=== PATIENT | female | born 1945 | race Caucasian/White ===

== ENCOUNTER 2017-05-24 23:06 | Emergency (ER) | payer OTHER ==
[~2017-05-24] VITALS: Ht 165.1 cm; Wt 80.8 kg
[2017-05-24 23:10] VITALS: TEMP 36.6; Ht 165.1 cm; Wt 80.8 kg
[2017-05-24] MEDS ORDERED: SODIUM CHLORIDE 0.9% 1000ML 1,000 ML IV SCH (23:23)
[2017-05-24 23:30] LABS: BASO % 0.4 %; BASO ABS # 0.04 K/uL (0-0.2); COMPLETE YES; HEMATOCRIT 38.8 % (37-47); IG% 0.4 %; LYMPH % 26.8 %; LYMPH ABS # 2.47 K/uL (1.2-3.4); MEAN CELL VOLUME 92.4 fL (80-100); MEAN CORPUSCULAR HEMOGLOBIN 30.7 pg (25-34); MEAN CORPUSCULAR HGB CONC 33.2 g/dl (32-36); MEAN PLATELET VOLUME 11.1 fL (7.4-10.4); MONO % 11.1 %; NEUT % 58.3 %; PLATELET COUNT 278 K/uL (130-400); WHITE BLOOD COUNT 9.23 K/uL (4.8-10.8)
[2017-05-24 23:37] LABS: URINE APPEARANCE CLEAR (CLEAR); URINE BILIRUBIN NEG (NEG); URINE COLOR YELLOW; URINE NITRITE NEG (NEG); URINE SPECIFIC GRAVITY 1.009 (1.000-1.030); UROBILINOGEN NEG (NEG); ZZUR CULT IF INDIC CLEAN CATCH NO
[2017-05-24 23:40] LABS: INR 0.9 (0.9-1.1)
[2017-05-24 23:42] LABS: MANUAL MICROSCOPIC REQUIRED? NO; REVIEW REQ? NO
[2017-05-24 23:47] LABS: BLOOD UREA NITROGEN 21 mg/dl (7-18); BUN/CREATININE RATIO 18.9 (10-20); CALCIUM 9.1 mg/dl (8.5-10.1); CARBON DIOXIDE 26 mmol/L (21-32); CHLORIDE 108 mmol/L (98-107); GLUCOSE 110 mg/dl (70-99); POTASSIUM 4.1 mmol/L (3.5-5.1); SODIUM 140 mmol/L (136-145)
[2017-05-24 23:50] VITALS: O2SAT 96
[2017-05-24 23:51] LABS: CKMB/CK RATIO 1.6 (0-3.0)
--- NOTE | 2017-05-24 23:53 | EMERGENCY ROOM VISIT NOTE ---
History Report prepared by Umair: Vanessa Bobby Under the Supervision of: Dr. Anmol Ham D.O. First contact with patient: 23:15 Chief Complaint: NEURO SYMPTOMS Stated Complaint: NUMBNESS IN LEFT HAND AND LEFT ARM Nursing Triage Summary: Pt reports onset of numbness and pain to left middle finger around 1730 today. Pt reports pain and numbness now worsening and spreading further up the arm. Hx of mini stroke 8 years ago, right sided. reports she occasionally has numbness to right side of face from that History of Present Illness The patient is a 72 year old female who presents to the Emergency Room with complaints of worsening left arm numbness starting 1700 today. She started with pain in her left middle finger. Since then the pain and numbness has spread up into her arm. She states that her whole hand and arm is painful and not just her elbow or wrist. The numbness is waxing and waning. She has never experienced this before. She reports foot swelling and neck pain. She denies any headache, weakness in her arms or legs, swelling in her hand or arm, chest pain, nausea, or vomiting. She denies any recent sickness or falls. She has leg pain which she attributes to her spinal stenosis. She had a TIA 8 years ago which resulted from a blocked blood vessel. She still has some numbness on the right side of her face. She has a history of hypertension and arthritis. She is on Plavix. She just started meloxicam. She denies any history of surgery besides C section. Source of History: patient, family Onset: 1700 today Position: arm (left) Quality: numbness Timing: waxes/wanes, worsening Associated Symptoms: + neck pain, No headache, No chest pain, No nausea, No vomiting, No weakness Note: Pt reports foot swelling. Pt denies arm swelling. Review of Systems See HPI for pertinent positives & negatives. A total of 10 systems reviewed and were otherwise negative. Past Medical & Surgical Medical Problems: (1) Arthritis (2) Hypertension (3) TIA (transient ischemic attack) Family History Heart disease Hypertension Social History Smoking Status: Never Smoker Marital Status: Occupation Status: employed Current/Historical Medications Scheduled Alendronate/Cholecalciferol (Fosamax+D 70MG/2800 Iu), 1 TABLET PO WK Aspirin (Aspirin Chewable), 81 MG PO DAILY Atorvastatin (Lipitor), 10 MG PO DAILY Benazepril (Lotensin), 10 MG PO DAILY Citalopram Hydrobromide (Celexa), 20 MG PO DAILY Clopidogrel Bisulfate (Plavix), 75 MG PO DAILY Fluticasone Propionate (Nasal) (Flonase Allergy Relief), 2 SPRAYS ANGIE DAILY Meloxicam (Mobic), 15 MG PO DAILY Multivitamin (Multivitamin), 1 TAB PO DAILY Omeprazole (Prilosec), 20 MG PO BID Scheduled PRN Lorazepam (Ativan), 0.5 MG PO TID PRN for Anxiety Allergies Coded Allergies: No Known Allergies (Unverified , 05/25/17) Physical Exam Vital Signs Date Time Temp Pulse Resp B/P (MAP) Pulse Ox O2 Delivery O2 Flow Rate FiO2 05/25/17 01:04 67 125/89 95 Room Air 05/24/17 23:50 96 Room Air 05/24/17 23:48 72 05/24/17 23:10 36.6 84 18 156/76 94 Room Air Physical Exam GENERAL: Patient is awake, alert, and in no acute distress. Patient is resting comfortably and showing no signs of anxiety EYES: The conjunctivae are clear. The pupils are round and reactive. EARS, NOSE, MOUTH AND THROAT: The nose is without any evidence of any deformity. Mucous membranes are moist tongue is midline NECK: The neck is nontender and supple. No bruits noted to auscultation. RESPIRATORY: Normal respiratory effort is noted there is no evidence of wheezing rhonchi or rales CARDIOVASCULAR: Regular rate and rhythm noted there no murmurs rubs or gallops normal S1 normal S2 GASTROINTESTINAL: The abdomen is soft. Bowel sounds are present in all quadrants. Abdomen is nontender MUSCULOSKELETAL/EXTREMITIES: There is no evidence of gross deformity full range of motion is noted in the hips and shoulders SKIN: There is no obvious evidence of any rash. There are no petechiae, pallor or cyanosis noted. 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 Medical Decision & Procedures ER Provider Diagnostic Interpretation: X-ray results as stated below per interpretation by me. Chest X-ray: Elevated right hemidiaphragm, no free air, no definite infiltrate, no acute disease CT the head was obtained in the emergency department. The report was reviewed. Preliminary Findings Only See Final Report For Complete Findings CT HEAD: No acute intracranial abnormality identified. Chronic small vessel ischemic disease and mild cerebral volume loss. Small remote lacunar infarcts versus prominent perivascular spaces in the basal ganglia. Mild senescent calcifications in the basal ganglia. Radiologist: Ana Garcia M.D. Study ready at 23:47 and initial results transmitted at 00:16 CT the cervical spine was obtained. The report is reviewed. Preliminary Findings Only See Final Report For Complete Findings CT C SPINE: No acute traumatic abnormality identified. Straightening of the normal cervical lordosis may be in part secondary to patient positioning/neck brace. Multilevel degenerative changes of the cervical spine, most prominent from C5- C7. Degenerative changes of the TMJs. Radiologist: Ana Garcia M.D. Study ready at 23:55 and initial results transmitted at 00:22 Laboratory Results 05/24/17 23:20 Red Blood Count 4.20, Mean Corpuscular Volume 92.4, Mean Corpuscular Hemoglobin 30.7, Mean Corpuscular Hemoglobin Concent 33.2, Mean Platelet Volume 11.1, Neutrophils (%) (Auto) 58.3, Lymphocytes (%) (Auto) 26.8, Monocytes (%) (Auto) 11.1, Eosinophils (%) (Auto) 3.0, Basophils (%) (Auto) 0.4, Neutrophils # (Auto ) 5.38, Lymphocytes # (Auto) 2.47, Monocytes # (Auto) 1.02, Eosinophils # (Auto ) 0.28, Basophils # (Auto) 0.04 05/24/17 23:20 Test 05/24/17 00:00 05/24/17 23:20 Urine Color YELLOW Urine Appearance CLEAR (CLEAR) Urine pH 6.0 (4.5-7.5) Urine Specific [place] 1.009 (1.000-1.030) Urine Protein NEG (NEG) Urine Glucose (UA) NEG (NEG) Urine Ketones NEG (NEG) Urine Occult Blood NEG (NEG) Urine Nitrite NEG (NEG) Urine Bilirubin NEG (NEG) Urine Urobilinogen NEG (NEG) Urine Leukocyte Esterase NEG (NEG) White Blood Count 9.23 K/uL (4.8-10.8) Red Blood Count 4.20 M/uL (4.2-5.4) Hemoglobin 12.9 g/dL (12.0-16.0) Hematocrit 38.8 % (37-47) Mean Corpuscular Volume 92.4 fL (80-100) Mean Corpuscular Hemoglobin 30.7 pg (25-34) Mean Corpuscular Hemoglobin Concent 33.2 g/dl (32-36) Platelet Count 278 K/uL (130-400) Mean Platelet Volume 11.1 fL (7.4-10.4) Neutrophils (%) (Auto) 58.3 % Lymphocytes (%) (Auto) 26.8 % Monocytes (%) (Auto) 11.1 % Eosinophils (%) (Auto) 3.0 % Basophils (%) (Auto) 0.4 % Neutrophils # (Auto) 5.38 K/uL (1.4-6.5) Lymphocytes # (Auto) 2.47 K/uL (1.2-3.4) Monocytes # (Auto) 1.02 K/uL (0.11-0.59) Eosinophils # (Auto) 0.28 K/uL (0-0.5) Basophils # (Auto) 0.04 K/uL (0-0.2) RDW Standard Deviation 45.0 fL (36.4-46.3) RDW Coefficient of Variation 13.3 % (11.5-14.5) Immature Granulocyte % (Auto) 0.4 % Immature Granulocyte # (Auto) 0.04 K/uL (0.00-0.02) Prothrombin Time 10.0 SECONDS (9.0-12.0) Prothromb Time International Ratio 0.9 (0.9-1.1) Activated Partial Thromboplast Time 26.6 SECONDS (21.0-31.0) Partial Thromboplastin Ratio 1.0 Anion Gap 6.0 mmol/L (3-11) Est Creatinine Clear Calc Drug Dose 49.3 ml/min Estimated GFR () 58.5 Estimated GFR (Non- 50.5 BUN/Creatinine Ratio 18.9 (10-20) Calcium Level 9.1 mg/dl (8.5-10.1) Total Creatine Kinase 91 U/L (26-192) Creatine Kinase MB 1.5 ng/ml (0.5-3.6) Creatine Kinase MB Ratio 1.6 (0-3.0) Troponin I < 0.015 ng/ml (0-0.045) Laboratory results per my review. Medications Administered Medications (Trade) Dose Ordered Sig/Naomy Route Start Time Stop Time Status Last Admin Dose Admin Sodium Chloride 1,000 ml @ 50 mls/hr Q20H IV 05/24/17 23:23 06/23/17 23:22 05/24/17 23:50 50 MLS/HR ECG Indication: weakness Rate (beats per minute): 71 Rhythm: normal sinus Findings: T-wave inversion (Anterior), no ectopy, other (no acute ST segment abnormality) Comparison ECG Date: 11-Aug-2011 Change: no significant change ED Course 231: The patient was evaluated in room A2. A complete history and physical examination were performed. 2323: NSS 1000 ml @ 50 mls/hr IV. 0028: I reevaluated the patient. She is resting comfortably. 0118: Upon reevaluation, the patient is resting comfortably. I discussed the results and treatment plan with her. She verbalized agreement of the treatment plan. She was discharged home. 0121: Oxycodone HCl 5 mg PO. 0130: Oxycodone HCl 1 homepack PO. Medical Decision Prior records/ancillary studies reviewed and summarized above. Nursing notes reviewed. Additional history obtained from family. The patient's history was concerning for weakness. Differential diagnosis: Etiologies such as metabolic, infection, hypo/hyperglycemia, electrolyte abnormalities, cardiac sources, intracerebral event, toxicologic, neurologic, as well as others were entertained. Medication Reconciliation: I attest that I have personally reviewed the patient' s current medications list. Blood pressure screening: Patient was found to have normal blood pressure on screening and does not require follow-up. The patient is a 72-year-old female who presented to the emergency department for an evaluation of left upper extremity numbness and pain. The patient states that she started noticing earlier this evening that her hand was feeling numb but she also had some discomfort especially with moving the fingers. She had no focal neurologic deficit. She has no facial droop. She has no other complaints at this time. The symptoms have been ongoing since Thursday. I discussed the patient's laboratory and radiographic studies with her. At this time I do not feel this represents a stroke. The patient was in normal sinus rhythm. Her exam as well as her history appear to be more consistent with a peripheral nerve entrapment such as carpal tunnel syndrome. I discussed this with the patient and I encouraged her to rest and avoid any strenuous activity. She was also encouraged to follow-up with her family doctor as soon as possible for further evaluation and for possible further testing such as an EMG. I did advise her to return the emergency department immediately if any symptoms that would correlate with a stroke were to develop such as severe headache unilateral weakness difficulty speaking or any other worrisome symptoms. The patient was treated with pain medication in the emergency department. She was also given IV fluids. Impression Primary Impression: Pain of left upper extremity Additional Impression: Left upper extremity numbness Scribe Attestation The scribe's documentation has been prepared under my direction and personally reviewed by me in its entirety. I confirm that the note above accurately reflects all work, treatment, procedures, and medical decision making performed by me. Departure Information Dispostion Home / Self-Care Referrals Radames Whitehead M.D. (PCP) Forms HOME CARE DOCUMENTATION FORM, IMPORTANT VISIT INFORMATION, WORK / SCHOOL INSTRUCTIONS Patient Instructions Carpal Tunnel Syndrome, Carpal Tunnel Syndrome Prevent, My [facility] Additional Instructions Call your family in the morning to schedule a follow-up appointment. I would recommend further studies such as an EMG or possibly a referral to physiatry asked to further evaluate the cause of the left upper extremity discomfort. Rest and avoid any strenuous activity. Return to the emergency Department immediately if any signs of stroke develop such as difficulty with speech severe headache weakness in the arms or legs or if any other worrisome symptoms develop. Problem Qualifiers
[2017-05-25] MEDS ORDERED: MELO15TA4 PO (00:04)
[2017-05-25] MEDS ORDERED: BENA10TA10 PO (00:06)
[2017-05-25] MEDS ORDERED: LORA-741 PO (00:06)
[2017-05-25] MEDS ORDERED: CITA20TA9 PO (00:06)
[2017-05-25] MEDS ORDERED: FSMD/70 PO (00:06)
[2017-05-25] MEDS ORDERED: CLOP1TAB5 PO (00:06)
[2017-05-25] MEDS ORDERED: PRLSR20 PO (00:06)
[2017-05-25] MEDS ORDERED: ATOR10TA88 PO (00:06)
[2017-05-25] MEDS ORDERED: ASPCH81X PO (00:08)
[2017-05-25] MEDS ORDERED: FLUT0.15 NAE (00:08)
[2017-05-25] MEDS ORDERED: MULT-506 PO (00:08)
[2017-05-25] MEDS ORDERED: OXYCODONE HCL IR 5 MG TAB (IMMEDIATE RELEASE) PO STA (01:21)
[2017-05-25] MEDS ORDERED: OXYCODONE IR HOME PACK PO ONE (01:30)
[2017-05-25 01:36] VITALS: BP 117/65; PULSE 76; O2SAT 94
--- NOTE | 2017-05-25 06:36 | DIAGNOSTIC IMAGING REPORT ---
CHEST ONE VIEW PORTABLE HISTORY:72 yearsFemaleStroke COMPARISON: None available TECHNIQUE: Portable upright AP view of the chest FINDINGS: Cardiomediastinal and hilar silhouettes are within normal limits. There is no pneumothorax, pleural effusion or focal airspace consolidation. There is mild right hemidiaphragmatic elevation. The bones are grossly intact. Linear radiodensities project over the upper right abdomen measuring up to 2.0 cm in length which are nonspecific. IMPRESSION: No acute cardiopulmonary process. The above report was generated using voice recognition software. It may contain grammatical, syntax or spelling errors. Electronically signed by: Aniket Malagon M.D. 05/25/2017 6:35 AM Dictated Date/Time: 05/25/2017 6:34 AM
--- NOTE | 2017-05-25 06:49 | DIAGNOSTIC IMAGING REPORT ---
HEAD WITHOUT CONTRAST (CT) HISTORY: 72-year-old female presents with acute strokelike symptoms and left upper extremity weakness. TECHNIQUE: Multiple axial CT images of the head were obtained without contrast. COMPARISON: Brain MRI 10/12/2007. FINDINGS: No acute intracranial hemorrhage, midline shift, mass, large territorial ischemia or abnormal extra-axial collection. There is mild cerebral volume loss. Patchy areas of low-attenuation are seen within the subcortical and periventricular white matter structures bilaterally which appears slightly progressed from comparison study dated 10/12/2007. Again noted is a focal area of low attenuation within the inferior left lentiform nucleus suggesting prominent perivascular space or remote lacunar infarction. The calvarium is intact. The paranasal sinuses, mastoid air cells, and middle ear cavities are clear. IMPRESSION: 1. No acute intracranial abnormality. 2. Age-related findings of mild cerebral atrophy with chronic microvascular ischemic changes, mildly progressed from comparison brain MRI dated 10/12/2007. The above report was generated using voice recognition software. It may contain grammatical, syntax or spelling errors. Electronically signed by: Aniket Malagon M.D. 05/25/2017 6:48 AM Dictated Date/Time: 05/25/2017 6:45 AM
--- NOTE | 2017-05-25 07:12 | DIAGNOSTIC IMAGING REPORT ---
CT OF THE CERVICAL SPINE CLINICAL HISTORY: Left upper extremity weakness COMPARISON STUDY: No previous studies for comparison. CT DOSE: 934.51 mGy.cm TECHNIQUE: CT scan of the cervical spine was performed from the skull base to the thoracic inlet. Images are reviewed in the axial, sagittal, and coronal planes. IV contrast was not administered for this examination. FINDINGS: The visualized portions of the lung apices reveal no evidence of pneumothorax. The prevertebral soft tissues are normal. No fractures or subluxations are visualized. There is straightening of normal cervical lordosis. There are moderate multilevel degenerative changes most pronounced at the C5-6 and C6-7 levels. There is mild spinal canal narrowing is pronounced the C6-7 level. If there is clinical concern over cord or disc pathology, an MRI would be considered the test of choice in follow-up There are degenerative changes within the temporal mandibular joints. IMPRESSION: Moderate degenerative change. No evidence of acute fracture or traumatic subluxation. Electronically signed by: Farrukh Gaming M.D. 05/25/2017 7:11 AM Dictated Date/Time: 05/25/2017 7:08 AM
== END 2017-05-25 01:37 | disposition home or self-care (01) ==
LOC: C.EDB 23:07 → C.EDA 05-25 01:37
DX: R20.2 Paresthesia of skin (principal); M79.622 Pain in left upper arm; I10 Essential (primary) hypertension; M19.90 Unspecified osteoarthritis, unspecified site; Z86.73 Personal history of transient ischemic attack (TIA), and cerebral infarction without residual deficits; Z79.82 Long term (current) use of aspirin; Z79.899 Other long term (current) drug therapy

== ENCOUNTER → 2017-10-05 | Outpatient (CLI) | payer OTHER ==
[~2017-10-05] MED LIST: ASPCH81X PO; ATOR10TA82 PO; BENA10TA10 PO; CITA20TA9 PO; CLOP1TAB5 PO; FLUT0.15 NAE; FSMD/70 PO; LORA-741 PO; MELO15TA4 PO; MULT-506 PO; PRLSR20 PO
--- NOTE | 2017-10-05 15:12 | MAMMOGRAPHY REPORT ---
BILATERAL DIGITAL SCREENING MAMMOGRAM WITH CAD: 10/05/2017 CLINICAL HISTORY: Routine screening. Patient has no complaints. TECHNIQUE: Bilateral CC and MLO views were obtained. Current study was also evaluated with a Compute r Aided Detection (CAD) system. COMPARISON: Comparison is made to exams dated: 09/12/2014 mammogram, 08/12/2013 mammogram, 03/10/2012 ma mmogram, 03/08/2012 mammogram - [facility], 12/31/2010 mammogram, and 12/18/2010 mammog chente - [facility]. BREAST COMPOSITION: There are scattered areas of fibroglandular density in both breasts. FINDINGS: An asymmetry in the medial right breast appears similar to the 2012, 2011 and 2008 mammogr ams, suggesting benignity. No new suspicious mass, architectural distortion or cluster of microcalci fications is seen. IMPRESSION: ACR BI-RADS CATEGORY 1: NEGATIVE There is no mammographic evidence of malignancy. A 1 year screening mammogram is recommended. The pa tient will receive written notification of the results. Approximately 10% of breast cancers are not detected with mammography. A negative mammographic report should not delay biopsy if a clinically suggestive mass is present. Aster Mota M.D. ay/:10/05/2017 09:16:58 Slasher Hand: Yvonne DE SANTIAGO)(Valente)([place]), [facility] letter sent: Normal 1/2 BI-RADS Code: ACR BI-RADS Category 1: Negative
== END | disposition home or self-care (01) ==
LOC: C.MAMM 08:58
PROVIDERS: ATTEND Obstetrics & Gynecology
DX: Z12.31 Encounter for screening mammogram for malignant neoplasm of breast (principal)

== ENCOUNTER 2021-11-22 09:51 | Observation (INO) ==
--- NOTE | 2021-10-23 10:25 | PAT Medication Instructions ---
Medication Instructions Date of Service October 23, 2021 Home Medications Medication Instructions Recorded Wheelchair (Manual) #1 ea 02/19/21 walker #1 ea 02/19/21 tramadol 50 mg tablet 50 mg PO Q8H PRN #60 tab 08/21/21 aspirin 81 mg chewable tablet 81 mg PO QAM atorvastatin 10 mg tablet 10 mg PO QAM benazepril 10 mg tablet 10 mg PO QAM calcium carbonate 600 mg-vitamin D3 5 mcg (200 unit) tablet (Calcium 600 + D(3)) 1 tab PO QAM citalopram 10 mg tablet 10 mg PO QAM clopidogrel 75 mg tablet 75 mg PO QAM cyclobenzaprine 5 mg tablet 5 - 10 mg PO TID PRN fluticasone propionate 50 mcg/actuation nasal spray,suspension (Flonase Allergy Relief) 2 spray INTRANASAL DAILY PRN multivitamin 1 tab PO QAM omeprazole 20 mg capsule,delayed release 20 mg PO QAM tramadol 50 mg tablet 50 mg PO Q8H PRN Continue as directed fluticasone propionate 50 mcg/actuation nasal spray,suspension (Flonase Allergy Relief) 2 spray INTRANASAL DAILY PRN (if needed) ASK your prescriber and surgeon clopidogrel 75 mg tablet 75 mg PO QAM (must hold medications at least 7 days in order to get spinal anesthesia) DO NOT take the morning of surgery benazepril 10 mg tablet 10 mg PO QAM calcium carbonate 600 mg-vitamin D3 5 mcg (200 unit) tablet (Calcium 600 + D(3)) 1 tab PO QAM cyclobenzaprine 5 mg tablet 5 - 10 mg PO TID PRN multivitamin 1 tab PO QAM Take morning of surgery With a small sip of water, OTHERWISE NOTHING TO EAT OR DRINK AFTER MIDNIGHT: aspirin 81 mg chewable tablet 81 mg PO QAM (unless surgeon directs otherwise) atorvastatin 10 mg tablet 10 mg PO QAM citalopram 10 mg tablet 10 mg PO QAM omeprazole 20 mg capsule,delayed release 20 mg PO QAM tramadol 50 mg tablet 50 mg PO Q8H PRN (okay to take up to 4 hours prior to nam rgery if needed) Take evening before surgery cyclobenzaprine 5 mg tablet 5 - 10 mg PO TID PRN (if needed) tramadol 50 mg tablet 50 mg PO Q8H PRN (if needed) Other Notes If you have any questions please call us at [phone] or [phone] or [phone] or [phone]
--- NOTE | 2021-10-29 12:38 | Anesthesiology Consultation ---
Date of Service October 29, 2021 Assessment & Plan (1) Encounter for pre-operative examination: - awaiting EKG. - Case discussed with Dr. Connell who advised medical clearance given age, co- morbidities and dyspnea on exertion per patient since deconditioning with curre nt orthopedic limitation; advised cardiac clearance not required pre-op. Patient aware will need medical clearance from PCP. 09/16/2021 S PCP visit does not mention pre-op clearance and shortness of breath is denied at that visit. Communication note including reported dyspnea on exertion completed to be faxed to PCP for medical clearance. - Case reviewed by Dr. Connell for outpatient joint pathway eligibility and deemed not appropriate outpatient joint. Rosa Maria at surgeon's office made aware. Patient aware, denied additional questions or concerns. - COVID screening: Per assessment on 10/29/2021: Travel screen negative, no known COVID-19 positive contacts or current COVID-19 related symptoms in past 2 weeks. Patient vaccinated. Surgeon arranging preop COVID testing, scheduled 11/20/2021. Awaiting results. Chart Review Chart Review: Acceptable Risk for Surgery (pending pre-op testing and medical clearance) and Patient seen in Pre Admission Testing Teaching & Discussion Pre-Anesthesia Teaching/Discussion Notes: Instructed NPO after midnight before surgery, except medications with 15 cc of water. Medication instructions provided according to the PAT guidelines. History Surgery Operation Date: 11/22/21 09:00 Proposed Procedures p Left Total Knee Arthroplasty - Jayy Reinoso, Height/Weight Height: 5 ft 5 in Weight: 82.1 kg Allergies Allergy/AdvReac Type Severity Reaction Status Date / Time No Known Allergies Allergy Verified 10/23/21 09:03 Medications Home Medications Medication Instructions Recorded Confirmed Last Taken aspirin 81 mg chewable tablet 81 mg PO QAM 10/08/18 10/23/21 04/02/21 atorvastatin 10 mg tablet 10 mg PO QAM 10/08/18 10/23/21 04/02/21 benazepril 10 mg tablet 10 mg PO QAM 10/08/18 10/23/21 04/02/21 calcium carbonate 600 mg-vitamin 1 tab PO QAM 10/08/18 10/23/21 04/02/21 D3 5 mcg (200 unit) tablet (Calcium 600 + D(3)) citalopram 10 mg tablet 10 mg PO QAM 10/08/18 10/23/21 04/02/21 clopidogrel 75 mg tablet 75 mg PO QAM 10/08/18 10/23/21 04/02/21 cyclobenzaprine 5 mg tablet 5 - 10 mg PO TID PRN 10/08/18 10/23/21 Unknown fluticasone propionate 50 2 spray INTRANASAL DAILY PRN 10/08/18 10/23/21 04/02/21 mcg/actuation nasal spray,suspension (Flonase Allergy Relief) multivitamin 1 tab PO QAM 10/08/18 10/23/21 04/02/21 omeprazole 20 mg capsule,delayed 20 mg PO QAM 10/08/18 10/23/21 04/02/21 release Wheelchair (Manual) #1 ea 02/19/21 10/08/21 Unknown walker #1 ea 02/19/21 10/08/21 Unknown tramadol 50 mg tablet 50 mg PO Q8H PRN #60 tab 08/21/21 10/23/21 Unknown Additional Notes: Patient will be checking with neurology if Plavix is acceptable to stop x 7 days for neuraxial anesthesia. 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 Exercise / Class Metabolic Activity III < 4 Walking/Shop/Light housework (SOB with activity with reduced activity since orthopedic conditions x months, denies CP; denies change or worsening) Past Family History Family History Mother Coronary heart disease Diabetes Sister Coronary heart disease Uncle Esophageal cancer Other No family history of adverse response to anesthesia Denies family history of Breast cancer Past Surgical History Surgical History H/O repair of left rotator cuff History of arthroscopy of right knee 07/12/2020: LMA#4, atraumatic x 1. No issues per anesthesia postop progress note. History of cataract surgery right and left History of colonoscopy History of esophagogastroduodenoscopy (EGD) History of surgical removal of skin lesion History of tonsillectomy Hx of section Past Anesthesia History No Hx of Anesthesia Complications and No Family Hx of Anesthesia Complications History of PONV No Hx of PONV and No Hx of Motion Sickness Social History Smoking Status: Never smoker tobacco type: cigarettes Smoking cigarettes per day: 40 YEARS AGO Do You Dip or Chew Tobacco: No Hx Alcohol Use: No Hx Substance Use: No substance use type: does not use Review of Systems Snoring, denies witnessed apneas or sleep studies. Patient denies chest pain, shortness of breath, fever, chills, cough, wheezing, or palpitations. Physical Exam Vital Signs Vitals BP 120/71 P 91 TEMP 98.1 SP02 96% on RA RESP 17 Physical Limited cervical extension range of motion without pain Full TMJ range of motion TMD 3.5 finger breaths Mallampati Score 3 Dentition: intact, multiple missing upper and lower back and sides, several caps/crowns sides (pt unsure upper or lower); denies chipped or loose teeth, implants or bridges Lungs: normal respiratory effort. Clear throughout to auscultation, no ad ventitious breath sounds Cardiac: regular rate and rhythm, no murmurs noted Carotid arteries: negative bruit bilat Extremities: no distal extremity edema Lab Results Anesthesia Preop Results Results Anesthesia Widget: WBC 6.95 K/uL (4.8-10.8) 10/29/21 Hgb 13.4 g/dL (12.0-16.0) 10/29/21 Hct 40.4 % (37-47) 10/29/21 Plt 340 K/uL (130-400) 10/29/21 Na 138 mmol/L (136-145) 10/29/21 K 4.2 mmol/L (3.5-5.1) 10/29/21 Cl 106 mmol/L (98-107) 10/29/21 CO2 27 mmol/L (21-32) 10/29/21 BUN 13 mg/dl (7-18) 10/29/21 Creat 1.08 mg/dl (0.6-1.2) 10/29/21 Glucose Level 150 mg/dl (70-99) H 10/29/21 PT 9.8 Seconds (9.0-12.0) 10/29/21 PTT 26.0 Seconds (21.0-31.0) 10/29/21 INR 1.0 (0.9-1.1) 10/29/21 Blood Type O Positive 10/29/21 Antibody Screen NEGATIVE 10/29/21 Testing Chest X-Ray Date: 10/29/21 FINDINGS: Lung volumes are normal. Lungs are clear. There is no pneumothorax or pleural effusion. Cardiac size is normal. Mediastinal contours are normal. There is no evidence for pulmonary edema. IMPRESSION: No acute cardiopulmonary findings.
--- NOTE | 2021-11-21 15:11 | History & Physical Report ---
Date of Service November 21, 2021 Assessment & Plan (1) Osteoarthritis of left knee: We will proceed with a left 20 arthroplasty. Postoperatively she will be started on aspirin and Plavix and kept overnight in the hospital for postoperative medical management. She plans to use energy physical therapy upon discharge. History of Present Illness Chief Complaint: Osteoarthritis of the left knee. Primary Care Provider: Julian Maxwell DO Che is a pleasant 76-year-old female who fell and sustained a left tibial plateau fracture in February 2021. She has been having chronic worsening knee pain since. She does have advanced arthritis of her left knee. She has been failing conservative treatment treatment including multiple injections. She has elected proceed with a left total knee arthroplasty. Allergies Allergy/AdvReac Type Severity Reaction Status Date / Time No Known Allergies Allergy Verified 10/23/21 09:03 Home Medications Medication Instructions Recorded Confirmed Type aspirin 81 mg chewable tablet 81 mg PO QAM 10/08/18 10/23/21 History atorvastatin 10 mg tablet 10 mg PO QAM 10/08/18 10/23/21 History benazepril 10 mg tablet 10 mg PO QAM 10/08/18 10/23/21 History calcium carbonate 600 mg-vitamin 1 tab PO QAM 10/08/18 10/23/21 History D3 5 mcg (200 unit) tablet (Calcium 600 + D(3)) citalopram 10 mg tablet 10 mg PO QAM 10/08/18 10/23/21 History clopidogrel 75 mg tablet 75 mg PO QAM 10/08/18 10/23/21 History cyclobenzaprine 5 mg tablet 5 - 10 mg PO TID PRN 10/08/18 10/23/21 History fluticasone propionate 50 2 spray INTRANASAL DAILY PRN 10/08/18 10/23/21 History mcg/actuation nasal spray,suspension (Flonase Allergy Relief) multivitamin 1 tab PO QAM 10/08/18 10/23/21 History omeprazole 20 mg capsule,delayed 20 mg PO QAM 10/08/18 10/23/21 History release Wheelchair (Manual) #1 ea 02/19/21 10/08/21 Rx walker #1 ea 02/19/21 10/08/21 Rx tramadol 50 mg tablet 50 mg PO Q8H PRN #60 tab 08/21/21 10/23/21 Rx tramadol 50 mg tablet 50 mg PO TID PRN #60 tab 10/30/21 Rx Past Med/Surg History Medical History Arthritis CVA (cerebral vascular accident) 14 years ago - cerebral embolism per records - on plavix - residual rt sided facial numbness Depression pt denies GERD (gastroesophageal reflux disease) controlled, stable per pt History of basal cell carcinoma >10 yrs ago s/p excision under chin History of colon polyps monitoring with colonoscopy History of SCC (squamous cell carcinoma) of skin 2020 s/p excision in office Hyperlipidemia Hypertension controlled, stable per pt Osteoporosis Spinal stenosis Surgical History H/O repair of left rotator cuff History of arthroscopy of right knee 07/12/2020: LMA#4, atraumatic x 1. No issues per anesthesia postop progress note. History of cataract surgery right and left History of colonoscopy History of esophagogastroduodenoscopy (EGD) History of surgical removal of skin lesion History of tonsillectomy Hx of section Family History Mother Coronary heart disease Diabetes Sister Coronary heart disease Uncle Esophageal cancer Other No family history of adverse response to anesthesia Denies family history of Breast cancer Social History Smoking Status: Never smoker Cigarettes Per Day: 40 YEARS AGO; Second Hand Exposure: No; Hx Alcohol Use: No Hx Substance Use: No Preferred Language: Icelandic Communication Ability: Effective Undercutter Operator Required: No Beliefs That Will Affect Care: None marital status: / Current Living Situation: Alone current occupational status: retired 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 Physical Exam Physical examination of the left knee shows a valgus deformity. She ambulates with a brace. She has range of motion from 0 to 120 degrees. She has no effusion.. Constitutional WD/WN, vitals as above Eyes PERRL, conjunctivae normal, anicteric sclerae ENMT external ear and nose normal, oropharynx normal Neck trachea midline, no thyromegaly Respiratory normal respiratory effort Cardiovascular RRR, no murmur, no edema Gastrointestinal (Abdomen) normal bowel sounds, soft, nontender, no hepatosplenomegaly Psychiatric A+Ox3, euthymic affect Results & Data Results & Data Laboratory Results . Diagnostic Findings X-rays of the left knee show advanced osteoarthritis with joint space narrowing, osteophyte formation, and [id number] articulation.. PG Care Time/CCT Total # of Minutes Spent Total Time Spent with Patient: Total time spent is greater than 50% in coordination of care (as documented) at patient's floor/unit and/or counseling patient: Coding Level of Care Code None Diagnoses Osteoarthritis of left knee M17.12
[~2021-11-22 09:51] MED LIST changes: +ACETAMINOPHEN 500 MG TAB PO SCH; -ASPCH81X PO; -ATOR10TA82 PO; -BENA10TA10 PO; +BUPIVACAINE 0.5 % 5 MG/1 ML PF 10ML VIAL ONE; -CITA20TA9 PO; -CLOP1TAB5 PO; +FAMOTIDINE 20 MG TAB PO SCH; -FLUT0.15 NAE; -FSMD/70 PO; +GABAPENTIN 300 MG CAP PO SCH; -LORA-741 PO; +LR 500ML BOLUS, THEN 15ML/HR IV SCH; -MELO15TA4 PO; -MULT-506 PO; -PRLSR20 PO; +ROPIVACAINE 0.5% HCL/PF 150 MG, BUPIVACAINE 0.75% MPF 20 ML, EPINEPHrine 30MG/30ML (OR ... INFIL SCH; +TRANEXAMIC ACID 1,000 MG **IV Intra-op IV SCH; +TRANEXAMIC ACID 1,000 MG **IV Pre-op IV SCH; +ceFAZolin 2000MG 2,000 MG/15 ML SYR IV SCH; +dexAMETHasone 4 MG TAB PO SCH
--- NOTE | 2021-11-22 10:57 | History & Physical Bridge Note ---
Date of Service November 22, 2021 History & Physical Bridge Note I have examined the patient, reviewed the History & Physical and in the interval since the performance of the History & Physical I have noted the following changes of clinical significance: no changes noted
[2021-11-22] MEDS ORDERED: MIDAZOLAM HCL 1 MG/ML 2ML VIAL ONE (11:13)
[2021-11-22] MEDS ORDERED: fentaNYL citrate 100 MCG/2 ML VIAL ONE (11:13)
[2021-11-22] MEDS ORDERED: LIDOCAINE 2% 2 ML VIAL/AMP(20MG/ML) INFIL ONE (11:13)
[2021-11-22] MEDS ORDERED: PROPOFOL IV EMULSION 10 MG/ML 20 ML VIAL IV ONE ×2 (11:13→12:53)
[2021-11-22] MEDS ORDERED: ORTHO JOINT ANESTHETIC ONE (11:20)
[2021-11-22] MEDS ORDERED: ATROPINE SULFATE 0.1 MG/ML 10ML SYR IV PRN (11:30)
[2021-11-22] MEDS ORDERED: ONDANSETRON INJ 2 MG/ML 2 ML VIAL IV PRN ×2 (11:30→16:09)
[2021-11-22] MEDS ORDERED: ePHEDrine sulfate 50 MG/ML AMP IV PRN (11:30)
[2021-11-22] MEDS ORDERED: fentaNYL citrate 100 MCG/2 ML VIAL IV PRN (11:30)
[2021-11-22] MEDS ORDERED: HYDROmorphone INJ 2 MG/ML SYR/VIAL IV PRN (11:30)
--- NOTE | 2021-11-22 13:26 | Operative Report ---
PG Post Operative Report Pre & Post Diagnosis Operation Date: 11/22/21 12:10 Pre-Op Diagnosis: Degenerative Joint Disease Left Knee Post-Op Diagnosis: Degenerative Joint Disease Left Knee I identified the patient and participated in the time-out.: Yes Procedure Operation Date: 11/22/21 12:10 Actual Procedures p Left Total Knee Arthroplasty, Cemented(Left) - Jayy Reinoso DO Surgeon Jayy Reinoso DO Toilet Attendant Jayy Tony PAC Estimated Blood Loss 10 Findings Consistent with Post-Op Diagnosis Specimens Left tibial and femoral bone Complications none Disposition Disposition: Recovery Room Indications Chinedu is a pleasant 76-year-old female who suffered a minimally displaced left tibial plateau fracture. It went on to heal uneventfully. Unfortunate she developed arthritis and a valgus deformity of her left knee. After failing conservative treatment, she elected proceed with a left total knee arthroplasty. Description of Procedure Implants used: I used a [employer] total knee arthroplasty system with a size 5 standard PS, E tibia, 31 oval patella, and a size 10 CPS polyethylene bearing. All components were cemented in place with Biomet cement. Chinedu arrived [facility] for the above procedure. She was seen in the preoperative holding area and the operative extremity was identified and signed. She was given a preoperative antibiotic, TXA, a spinal anesthetic and an adductor nerve block. She was taken back to the operating room and laid on the table in supine position. She was given basic sedation. The operative knee was then prepped and draped in sterile fashion. A timeout was done, and the patient and the operative extremity was properly identified. A midline incision was made directly over the patella. Dissection was taken down to the extensor mechanism. A subvastus arthrotomy was used. The medial retinaculum was released and the fat pad was mostly excised. The knee was flexed and the ACL, PCL, and meniscus were removed. A drill was sent down the center of the femoral canal followed by an intramedullary chani. Off that chani a distal femoral cutting block was placed. 9 mm was resected off the distal femur at 5 of valgus. A posterior referencing AP sizing guide was then placed on the distal femur. The femur measured to be a size 5 standard PS 2 drill holes were placed in 3 of external rotation. A 4-in-1 cutting block was then impacted into place. Anterior, posterior, and chamfer cuts were then made. The proximal tibia was then exposed. An external tibial alignment guide was placed. A tibial cut guide was then anchored in place and the proximal tibia was then resected. The posterior aspect of the knee was then opened up and any additional meniscus fragments and osteophytes were removed. The tibia measured to be a size E. The tibial plate was then placed in the appropriate rotation and the tibia was drilled and punched. Trial components were then placed. I used a size 10 CPS polyethylene insert. T he knee was brought through a full range of motion and felt to be stable. The peg holes for the femoral component were then drilled. The patella was then everted and 9 mm was resected off the posterior aspect of the patella. The patella measured to be a size 31 oval. 3 peg holes were then drilled. A trial patella was placed. The knee was once again brought through a full range of motion and felt to be stable. Trial components were then removed. The surrounding soft tissues were injected with 100 cc of an orthopedic pain control cocktail. All components were then cemented into place with Biomet cement. The final polyethylene insert was then snapped into place. Once cement was dry the tourniquet was deflated. Hemostasis was obtained. A dilute betadyne lavage was then done for 3 minutes. The joint was then irrigated with normal saline solution. The subvastus arthrotomy was then closed with #1 Vicryl suture. The skin was closed with 2-0 Vicryl, 3-0V lock suture, and radha. A soft compressive dressing was placed. She was then transferred to a hospital bed and taken to the postanesthesia care unit in stable condition. She tolerated the procedure well. Jayy Tony PA-C, was present for the entire procedure. He was critical for patient positioning, prepping, draping, retraction exposure, wound closure and application of sterile dressing. I attest to the content of the Intraoperative Record and any orders documented therein. Any exceptions are noted below.
--- NOTE | 2021-11-22 14:05 | XRay Report ---
XR knee LT 1 or 2V routine HISTORY: 76 years-old Female Surgical Post Op [knee total joint arthroplasty COMPARISON: Knee radiographs 10/29/2021 TECHNIQUE: 2 views of the left knee FINDINGS: Left knee total joint arthroplasty with patellar resurfacing. Satisfactory alignment without acute fr acture or unexpected opaque foreign body. Anterior midline skin radha are noted with expected posto perative soft tissue swelling and deep tissue air. IMPRESSION: Total joint arthroplasty and patella resurfacing with expected postoperative changes. ACT 112: Negative or not required by law. The above report was generated using voice recognition software. It may contain grammatical, syntax o r spelling errors. Electronically signed by: Onel Malagon M.D. 11/22/2021 2:03 PM
--- NOTE | 2021-11-22 15:19 | Anesthesiology Progress Note ---
Date of Service November 22, 2021 Anesthesia Post Procedure Vital Signs Vital Signs: Temp Pulse Pulse Resp BP Pulse Ox 11/22/21 15:10 71 20 107/61 94 11/22/21 15:00 70 14 91/48 L 93 11/22/21 14:50 72 14 94/63 L 96 11/22/21 14:40 36.4 C L 73 17 113/60 96 11/22/21 14:30 78 15 120/65 97 11/22/21 14:20 75 14 121/54 L 96 11/22/21 14:10 75 13 108/63 96 11/22/21 14:00 79 14 102/60 97 11/22/21 13:50 88 15 104/47 L 95 11/22/21 13:44 36.7 C 90 16 90/52 L 94 11/22/21 10:22 36.7 C 90 18 132/94 96 Transfer of Care Handoff Completed per policy Notes Mental Status: alert / awake / arousable and participated in evaluation Patient Amnestic to Procedure: Yes Nausea / Vomiting: adequately controlled Pain: adequately controlled Airway Patency, RR, SpO2: stable & adequate BP & HR: stable & adequate Hydration State: stable & adequate Anesthetic Complications: no major complications apparent and Pt Satisfied with anesthetic care
[2021-11-22] MEDS: SODIUM CHLORIDE 0.9% 1000ML 1,000 ML IV SCH (16:00)
[2021-11-22] MEDS ORDERED: FLUTICASONE PROPIONATE NA SPR 16 GM BTL PRN (16:09)
[2021-11-22] MEDS ORDERED: HYDROmorphone INJ 0.5 MG/0.5 ML SYR IV PRN (16:09)
[2021-11-22] MEDS ORDERED: NALOXONE HCL 0.4 MG/1 ML VIAL/CARP IV PRN (16:09)
[2021-11-22] MEDS ORDERED: bisacodyL 10 MG SUPP PR PRN (16:09)
[2021-11-22] MEDS ORDERED: MAGNESIUM HYDROXIDE SUSP 30 ML UDC PO PRN (16:09)
[2021-11-22] MEDS ORDERED: METOCLOPRAMIDE HCL INJ 5 MG/ML 2 ML VIAL IV PRN (16:09)
[2021-11-22] MEDS ORDERED: CYCLOBENZAPRINE HCL 5 MG TAB PO PRN (16:09)
[2021-11-22] MEDS: KETOROLAC TROMETHAMINE 15 MG/ML VIAL IV SCH ×2 (16:50→22:01)
[2021-11-22] MEDS: ACETAMINOPHEN 500 MG TAB PO SCH ×2 (16:50→22:00)
[2021-11-22] MEDS: oxyCODONE HCL IR 5 MG TAB (IMMEDIATE RELEASE) PO PRN ×2 (18:11→22:01)
[2021-11-22] MEDS: ceFAZolin 2000MG 2,000 MG/15 ML SYR IV SCH (20:10)
[2021-11-22] MEDS: DOCUSATE SODIUM 100 MG CAP PO SCH (20:11)
[2021-11-22] MEDS: ASPIRIN 81 MG ECTAB PO SCH (20:12)
[2021-11-22] MEDS ORDERED: SENNA 8.6 MG TAB PO SCH (21:00)
[2021-11-23] MEDS: SODIUM CHLORIDE 0.9% 1000ML 1,000 ML IV SCH (02:26)
[2021-11-23] MEDS: KETOROLAC TROMETHAMINE 15 MG/ML VIAL IV SCH ×2 (04:28→09:51)
[2021-11-23] MEDS: ceFAZolin 2000MG 2,000 MG/15 ML SYR IV SCH (04:28)
[2021-11-23] MEDS: oxyCODONE HCL IR 5 MG TAB (IMMEDIATE RELEASE) PO PRN ×2 (05:51→09:51)
[2021-11-23] MEDS: ACETAMINOPHEN 500 MG TAB PO SCH (05:51)
[2021-11-23] MEDS ORDERED: PANTOprazole 40 MG TAB PO SCH (06:30)
[2021-11-23] MEDS ORDERED: dexAMETHasone 4 MG TAB PO SCH (08:00)
[2021-11-23] MEDS: ASPIRIN 81 MG ECTAB PO SCH (08:21)
[2021-11-23] MEDS: DOCUSATE SODIUM 100 MG CAP PO SCH (08:21)
--- NOTE | 2021-11-23 08:41 | Orthopedic Progress Note ---
Date of Service November 23, 2021 Assessment & Plan (1) Status post left knee replacement: Overall she is doing very well. She is having much pain in the left knee. She is on Plavix and aspirin for DVT prophylaxis. She will be seen by physical therapy today for ambulation and range of motion exercises. She can be discharged home later today. She will follow-up with orthopedics in 2 weeks. Terrell Che was seen and examined at bedside this morning. Overall she is doing very well. She is not any much pain in the left knee. She has been up and ambulating to the bathroom. She has no complaints.. Review of Systems All systems reviewed & are unremarkable except as noted in HPI & below. Physical Exam On physical examination of the left knee, the dressing is clean and dry. She is sitting at bedside with the knee flexed at about 90 degrees. She has active dorsiflexion and plantarflexion of her left ankle. Results & Data Results & Data Laboratory Results . Diagnostic Findings Show the prosthesis to be in anatomic alignment without any evidence of fracture, dislocation, or loosening. PG Care Time/CCT Total # of Minutes Spent Total Time Spent with Patient: Total time spent is greater than 50% in coordination of care (as documented) at patient's floor/unit and/or counseling patient: Coding Level of Care Code 67224 Post Operative Follow-Up Diagnoses Status post left knee replacement Z96.652
--- NOTE | 2021-11-23 08:44 | Discharge Summary ---
Date of Service November 23, 2021 Admission HPI (Per Admitting) Chinedu is a pleasant 76-year-old female who fell and sustained a left tibial plateau fracture in February 2021. She has been having chronic worsening knee pain since. She does have advanced arthritis of her left knee. She has been failing conservative treatment treatment including multiple injections. She has elected proceed with a left total knee arthroplasty. Admission Exam (Per Admitting) Physical examination of the left knee shows a valgus deformity. She ambulates with a brace. She has range of motion from 0 to 120 degrees. She has no effusion.. Principal Diagnosis Same as "Discharge Diagnosis" noted below under Discharge Instructions. Discharge Exam On physical examination of the left knee, the dressing is clean and dry. She is sitting at bedside with the knee flexed at about 90 degrees. She has active dorsiflexion and plantarflexion of her left ankle. Discharge Data Procedures Performed Operation Date: 11/22/21 12:10 Actual Procedures p Left Total Knee Arthroplasty, Cemented(Left) - Jayy Reinoso DO Ordered Studies 11/22/21 05:00 US - OR guided needle placemen Routine Hospital Course (1) Status post left knee replacement: On November 22, 2021 Chinedu arrived at [facility] and underwent a left knee replacement without complication. She had a spinal anesthetic. Postoperatively she was started on aspirin and Plavix for DVT prophylaxis and transferred to the general orthopedic floors. Her hospital course was uneventful. On postop day #1 her vital signs were stable and her pain was well controlled. She was able to participate well with physical therapy doing ambulation and range of motion exercises. She was then discharged home. She will follow-up with orthopedics in 2 weeks. PG Care Time/CCT Total # of Minutes Spent Total Time Spent with Patient: Total time spent is greater than 50% in coordination of care (as documented) at patient's floor/unit and/or counseling patient: Discharge Plan Discharge Items Patient Disposition: Home - Home Health Services Reason For Visit: DJD Left Knee Discharge Diagnosis: Status post left knee replacement Activity: As commented below Non-emergency contact: Surgeon Call non-emergency contact if: your wound has increased redness and your wound has increased drainage Follow-up/Referrals: Julian Maxwell DO [Primary Care Provider] - Diet: Regular Addtl Attending Provider Instructions: Activity and Therapy Recommendations: * If you are using [facility] then therapy will be provided at your home until they feel you have accomplished all of your goals. * If you are using [facility] then Physical Therapy will be provided until they feel you are ready to start Outpatient Physical Therapy. * If you are not using home therapy then Outpatient Physical Therapy should start about 3-5 days from your day of surgery. Therapy will last about 6-10 weeks * It is important not to put a pillow under your knee when you are relaxing or sleeping. It is just as important to make sure you are getting your knee perfectly straight as it is to regain your knee bend. * You were shown a series of exercises in the hospital. Do these exercises three times each day including the exercises you were shown in physical therapy. * Get up and walk several times each day. For the first four weeks, try not to s tand or walk for more than one hour at a time. If you do stand or walk for more than one hour, you will not hurt anything, but your leg will likely swell. * As you feel comfortable, you may change from the walker or crutches to a cane and then to independent walking. Medications: * Narcotic You will likely be sent home from the hospital with a prescription for the narcotic pain medication that worked best throughout your stay. * Aspirin Most patients will be required to take Aspirin 81mg twice a day for 6 weeks after surgery. This is obtained [id number] and a prescription is not necessary. * Other medications may be prescribed for specific circumstances. If you have any questions, please call the office at . * Resume previous home medications unless otherwise instructed TEDs/Elastic Stockings: The white elastic stockings help limit swelling and prevent blood clots from forming in your legs.~ The more you wear them, the more they work. Wear them for six weeks. Dressing Care: The dressing can be changed after physical therapy on postop day #1. Daily dry dressing changes for a few days, especially if the incision is still draining some. If the incision is not draining then you may leave the radha open to air. If there is a little bit of drainage or if the radha are getting stuck on your clothing then cover the incision with a dry dressing. The radha will be removed at your 2 week follow-up appointment. Showering: You may shower 5 days from the day of surgery as long as the incision is no longer draining. You may shower with the radha exposed. Let soapy water run over the rdaha and pat them dry. Do not scrub or soak the incision. Things To Watch For: * Drainage from the incision site that occurs more than one week after your surgery. * Increased redness at the incision site. * Fever above 102 degrees Fahrenheit. * Unusual chest pain or shortness of breath. * Call [facility] at with any of the above problems Follow-Up Visit: Follow-up with Dr. Reinoso's PA (Jayy Tony) 2-3 weeks after your day of surgery. He will remove your radha and answer any questions. If you have any additional questions or concerns, Dr Reinoso is usually in the office at the same time and will be available An appointment was probably scheduled when you signed-up for surgery in the office. If you have any questions call Office Instructions: More detailed instructions as well as Frequently Asked Questions were provided in a folder by our office when you signed-up for surgery. Please review these instructions when you get home. If you have any further questions or concerns, please feel free to call the office at [phone] Pending Studies at Discharge: No Stand-Alone Forms: My [facility] Medications and DC Order Prescriptions: New oxycodone-acetaminophen 5-325 mg tablet 1 tab PO Q6H PRN (Reason: pain) Qty: 30 RF: 0 Continued (DME) walker Misc See Rx Instructions .MEDSUPPLY Qty: 1 RF: 0 (DME) Wheelchair (Manual) Device See Rx Instructions .MEDSUPPLY Qty: 1 RF: 0 tramadol 50 mg tablet 50 mg PO Q8H PRN (Reason: pain) Qty: 60 RF: 0 atorvastatin 10 mg tablet 10 mg PO QAM RF: 0 citalopram 10 mg tablet 10 mg PO QAM RF: 0 clopidogrel 75 mg tablet 75 mg PO QAM RF: 0 benazepril 10 mg tablet 10 mg PO QAM RF: 0 cyclobenzaprine 5 mg tablet 5 - 10 mg PO TID PRN (Reason: Pelvic Pain) RF: 0 multivitamin Tablet 1 tab PO QAM RF: 0 aspirin 81 mg Tablet,Chewable 81 mg PO QAM RF: 0 fluticasone propionate [Flonase Allergy Relief] 50 mcg/actuation [place],Suspension 2 spray INTRANASAL DAILY PRN (Reason: Allergy Symptoms) RF: 0 calcium carbonate-vitamin D3 [Calcium 600 + D(3)] 600 mg(1,500mg) -200 unit Tablet 1 tab PO QAM RF: 0 omeprazole 20 mg Capsule,Delayed Release(Dr/Ec) 20 mg PO QAM RF: 0 Discharge Orders: Discharge Order (Routine); Ordered 11/23/21 Ordered By: Jayy Reinoso Admission Data Admit Date/Time: 11/22/21 13:47 Attending Provider: Jayy Reinoso Admit Provider: Jayy Reinoso Primary Care Provider: Julian Maxwell
[2021-11-23] MEDS ORDERED: ENALAPRIL MALEATE 10 MG TAB PO SCH (09:00)
[2021-11-23] MEDS ORDERED: MULTIVITAMIN TAB PO SCH ×2 (09:00)
[2021-11-23] MEDS ORDERED: CLOPIDOGREL BISULFATE 75 MG TAB PO SCH (09:00)
[2021-11-23] MEDS ORDERED: CITALOPRAM 20 MG TAB PO SCH (09:00)
[2021-11-23] MEDS ORDERED: ATORVASTATIN 10 MG TAB PO SCH (09:00)
== END 2021-11-23 12:10 | disposition home health service (06) ==
LOC: 3E 09:51 → ASU 09:51

== ENCOUNTER 2022-11-17 15:37 | Inpatient (IN) ==
--- NOTE | 2022-11-17 16:27 | XRay Report ---
XR chest 2V PA/lateral HISTORY: Cough. Shortness of breath. Sepsis COMPARISON: Chest 10/29/2021. FINDINGS: The lungs are clear. Cardiac silhouette is normal in size. No pleural effusions. No pneumot horax. IMPRESSION: No acute process. ACT 112: Negative or not required by law. Electronically signed by: Josh Smith M.D. 11/17/2022 4:26 PM
[2022-11-17 16:29] LABS: Basophils # (auto) 0.04 K/uL (0-0.2); Basophils % (auto) 0.4 %; Eosinophils # (auto) 0.01 K/uL (0-0.50); Eosinophils % (auto) 0.1 %; Hemoglobin 14.3 g/dl (12.0-16.0); Immature Granulocytes # (auto) 0.05 K/uL (0.00-0.02); Immature Granulocytes % (auto) 0.5 %; Lymphocytes # (auto) 1.14 K/uL (1.2-3.4); Lymphocytes % (auto) 10.4 %; Mean Corpuscular Hemoglobin 32.4 pg (25.0-34.0); Mean Corpuscular Hgb Conc 34.9 g/dL (32.0-36.0); Mean Platelet Volume 11.5 fL (9.4-12.3); Monocytes # (auto) 0.93 K/uL (0.24-0.82); Monocytes % (auto) 8.5 %; Neutrophils # (auto) 8.74 K/uL (1.4-6.5); Neutrophils % (auto) 80.1 %; Platelet Count 281 K/uL (130-400); RDW Coefficient of Variation 13.5 % (11.5-14.5); RDW Standard Deviation 45.9 fL (36.4-46.3); Red Blood Count 4.41 M/uL (3.93-5.22); White Blood Count 10.91 K/ul (4.8-10.8)
--- NOTE | 2022-11-17 16:37 | Electrocardiogram Report ---
Test Reason : Blood Pressure : / mmHG Vent. Rate : 115 BPM Atrial Rate : 115 BPM P-R Int : 134 ms QRS Dur : 078 ms QT Int : 320 ms P-R-T Axes : 022 -34 093 degrees QTc Int : 442 ms Poor data quality, interpretation may be adversely affected Sinus tachycardia Left axis deviation Poor R wave progression, consider anterior RI vs. lead placement vs. LVH Abnormal ECG When compared with ECG of 29-OCT-2021 13:05, No significant change was found Confirmed by Jared Antoine ([id number]) on 11/17/2022 4:37:38 PM Referred By: SELF Confirmed By:Jared Antoine
[2022-11-17] MEDS ORDERED: SODIUM CHLORIDE 0.9% 1000ML 1,000 ML IV ONE ×2 (17:00→18:03)
[2022-11-17 17:01] LABS: Alanine Aminotransferase 20 U/L (7-52); Albumin Globulin Ratio 1.3 (0.9-2); Albumin Level 4.2 gm/dl (3.4-5.0); Alkaline Phosphatase 115 U/L (34-104); Anion Gap 11 (3-11); Aspartate Aminotransferase 25 U/L (13-39); BUN Creatinine Ratio 16.3 (10-20); Bilirubin,Total 0.6 mg/dl (0.2-1.0); Blood Urea Nitrogen 14 mg/dl (6-23); Calcium 9.1 mg/dl (8.5-10.1); Carbon Dioxide 19 mmol/L (21-32); Chloride 102 mmol/L (98-107); Est GFR (African American) 76.1 ml/min; Est GFR (Non-African American) 65.6 ml/min; Globulin 3.3 gm/dl (2.5-4.0); Glucose 137 mg/dl (70-99(Fasting)); Magnesium 1.7 mg/dl (1.7-2.4); Potassium 4.2 mmol/L (3.5-5.1); Sodium 132 mmol/L (136-145); Total Protein 7.5 gm/dl (6.0-8.3)
[2022-11-17 17:05] LABS: Troponin I High Sensitivity 14.8 pg/ml (0-14)
[2022-11-17] MEDS ORDERED: ACETAMINOPHEN 500 MG TAB PO STA (17:08)
--- NOTE | 2022-11-17 17:08 | Emergency Department Note ---
Impression & Plan Fever, Cough ADMIT ED Provider Note HPI: The patient is a 77-year-old female who presents the emergency department chief complaint of cough and fever. Patient states she has had a cough now for several weeks, states that over the past 2 days her cough seems to have worsened and she also developed a fever over the past 2 days. Patient states that she has been coughing relatively intensely over the past day which concerned her and was making her feel short of breath, she therefore came to the ED for further assessment. On arrival the patient is tachycardic in the 110s, she is noted to be febrile at 38.3 on my initial assessment. She is otherwise conversational, alert and oriented x3. ROS: - Per HPI *Outpatient medications and allergy history reviewed. *Pertinent external medical records reviewed. PE: General: Alert HEENT: Normocephalic, trachea midline Eyes: Extraocular eye movement is intact, no scleral erythema Pulmonary: Coarse bilateral breath sounds with mild expiratory wheezing Cardio: Regular rate and rhythm GI: Abdomen is soft, nontender : No suprapubic tenderness MSK: No evidence of trauma or malformation of the extremities, no edema Skin: No evidence of rash Neuro: Alert, no focal deficits Psychiatric: Cooperative monitoring coordinator: - An order was placed for continuous cardiac monitoring - Patient was noted to be in sinus rhythm with a rate of 113 EKG: (As interpreted by myself): Rate: 115 Rhythm: Sinus tachycardia Intervals: Within normal limits ST changes: No ST elevation Time: 1601 Interventions provided in ED: -IV cefepime, IV azithromycin, IV fluid bolus at 2000 cc, Tylenol Medical Decision Making: Patient presented to the emergency department with cough, fever, tachycardia. Patient states that she had a previous presentation with similar symptoms and developed sepsis requiring hospital admission in 2018. This concerned her and therefore she came back to the ED today for assessment for possible pneumonia. On my evaluation the patient is tachycardic, blood pressure stable, she is febrile at 38.3. Initial viral panel testing is negative for COVID-19, influenza, and RSV, patient was ordered IV fluid bolus of 2000 cc and none further secondary to stable blood pressure and improvement in tachycardia. Patient denies any chest pain, troponin is mildly elevated at 14.8, EKG does not show any acute ischemic changes, I have low suspicion for ACS or PE. Low suspicion for viral myocarditis. Chest x-ray does not show any evidence of pneumonia, blood cultures were drawn in the ED, given initial negative viral panel in addition to leukocytosis, azithromycin and cefepime were started for broad-spectrum coverage over concern for possible early sepsis. Lactic acid is noted to be normal at 0.8. On my reevaluation patient states she feels "terrible". She remains hemodynamically stable but states she does not feel well for discharge. Given her history of sepsis with similar presentation, I did discuss the case with the on-call hospitalist for [facility], Dr. Cotto, who is in agreement to admit the patient for further management and follow-up on blood cultures. Patient's symptoms appear to be purely pulmonary, states she has a cough and shortness of breath, denies any chest pain. We will add on extensive viral panel testing with bio [facility] panel to determine whether or not she may have a viral URI. Patient is in agreement to the above plan as is her daughter at the bedside and the patient was admitted in stable condition for further care. Disposition discussion held by myself with: Patient and daughter at bedside Diagnosis: 1. Cough, acute 2. Fever 3. Leukocytosis 4. Nonspecific dyspnea 5. Sinus tachycardia 6. Elevated troponin, mild Disposition: Admission Jamar Garcia DO Emergency Medicine Past Med/Surg History Medical History Arthritis CVA (cerebral vascular accident) Depression GERD (gastroesophageal reflux disease) History of basal cell carcinoma History of colon polyps History of SCC (squamous cell carcinoma) of skin Hyperlipidemia Hypertension Osteoporosis Spinal stenosis Surgical History H/O repair of left rotator cuff History of arthroscopy of right knee History of cataract surgery History of colonoscopy History of esophagogastroduodenoscopy (EGD) History of surgical removal of skin lesion History of tonsillectomy Hx of section Family History Mother Coronary heart disease Diabetes Sister Coronary heart disease Uncle Esophageal cancer Other No family history of adverse response to anesthesia Denies family history of Breast cancer Social History Smoking Status: Never smoker Cigarettes Per Day: 40 YEARS AGO; Second Hand Exposure: No; Hx Alcohol Use: No Hx Substance Use: No Preferred Language: Luxembourgish Communication Ability: Effective Hydrometer Finisher Required: No Beliefs That Will Affect Care: None marital status: / Current Living Situation: Alone current occupational status: retired 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 How many Children do You have: 3 Other Information That Helps Us Care for You: No Feels Safe at Home: Yes Diet Comment: reg diet, + ca and Vit d supp Physical Activity Frequency: 3-4 Times per Week Physical Activity Frequency Comment: swimming at [employer] or [employer] Assistive Devices: Glasses and Walker Allergies Allergies Allergy/AdvReac Type Severity Reaction Status Date / Time No Known Allergies Allergy Verified 11/17/22 17:53 Home Meds Home Medications Medication Instructions Recorded Confirmed aspirin 81 mg chewable tablet 81 mg PO QAM 10/08/18 11/17/22 atorvastatin 10 mg tablet 10 mg PO QAM 10/08/18 11/17/22 benazepril 10 mg tablet 10 mg PO QAM 10/08/18 11/17/22 calcium carbonate 600 mg-vitamin 1 tab PO QAM 10/08/18 11/17/22 D3 5 mcg (200 unit) tablet (Calcium 600 + D(3)) citalopram 10 mg tablet 10 mg PO QAM 10/08/18 11/17/22 clopidogrel 75 mg tablet 75 mg PO QAM 10/08/18 11/17/22 fluticasone propionate 50 2 spray intranasal DAILY 10/08/18 11/17/22 mcg/actuation nasal spray,suspension (Flonase Allergy Relief) multivitamin 1 tab PO QAM 10/08/18 11/17/22 omeprazole 20 mg capsule,delayed 20 mg PO BID 10/08/18 11/17/22 release mirabegron 25 mg tablet,extended 25 mg PO QAM 11/17/22 11/17/22 release 24 hr (Myrbetriq) Previous Rx's Medication Instructions Recorded Wheelchair (Manual) #1 ea 02/19/21 walker #1 ea 02/19/21 amoxicillin 500 mg tablet 2,000 mg PO ONCE PRN prophylaxis 04/22/22 #4 tabs Results & Data (ED) Vital Signs Vital Signs - 24 hr 11/17/22 15:46 11/17/22 16:54 11/17/22 17:09 Temperature 36.8 C 38.3 C H Temperature Source Temporal Artery Scan Oral Pulse Rate 122 H Pulse Rate [Apical] 115 H Pulse Rate from SpO2 Sensor Respiratory Rate 19 Respiratory Effort / Characteristics Non-Labored Spontaneous Respiratory Depth Normal Blood Pressure 127/74 Blood Pressure [Left Arm] 151/81 H Blood Pressure Mean 91 Blood Pressure Mean [Left Arm] 104 Blood Pressure Position [Left Arm] Lying Pulse Oximetry 93 93 93 Oxygen Delivery Method Room Air Room Air Room Air Sepsis Recent Fever Within 48 Hours No Sepsis New/Unexplained Change in Mental Status N/A Sepsis Action Taken by Nursing No Action Required 11/17/22 16:55 11/17/22 17:00 11/17/22 17:05 Temperature Temperature Source Pulse Rate 112 H 111 H Pulse Rate [Apical] Pulse Rate from SpO2 Sensor 112 H 111 H Respiratory Rate 23 28 H Respiratory Effort / Characteristics Respiratory Depth Blood Pressure 157/67 H Blood Pressure [Left Arm] Blood Pressure Mean 97 Blood Pressure Mean [Left Arm] Blood Pressure Position [Left Arm] Pulse Oximetry 93 93 Oxygen Delivery Method Sepsis Recent Fever Within 48 Hours Sepsis New/Unexplained Change in Mental Status Sepsis Action Taken by Nursing 11/17/22 17:05 11/17/22 17:30 11/17/22 17:30 Temperature Temperature Source Pulse Rate 109 H 102 H Pulse Rate [Apical] Pulse Rate from SpO2 Sensor 110 H 104 H Respiratory Rate 30 H 22 Respiratory Effort / Characteristics Respiratory Depth Blood Pressure 148/111 H Blood Pressure [Left Arm] Blood Pressure Mean 123 Blood Pressure Mean [Left Arm] Blood Pressure Position [Left Arm] Pulse Oximetry 94 92 Oxygen Delivery Method Sepsis Recent Fever Within 48 Hours Sepsis New/Unexplained Change in Mental Status Sepsis Action Taken by Nursing 11/17/22 18:00 11/17/22 18:00 11/17/22 18:30 Temperature Temperature Source Pulse Rate 109 H Pulse Rate [Apical] Pulse Rate from SpO2 Sensor 110 H Respiratory Rate 20 Respiratory Effort / Characteristics Respiratory Depth Blood Pressure 134/91 125/56 L Blood Pressure [Left Arm] Blood Pressure Mean 105 79 Blood Pressure Mean [Left Arm] Blood Pressure Position [Left Arm] Pulse Oximetry 95 Oxygen Delivery Method Sepsis Recent Fever Within 48 Hours Sepsis New/Unexplained Change in Mental Status Sepsis Action Taken by Nursing 11/17/22 18:30 Temperature 37.2 C Temperature Source Pulse Rate 105 H Pulse Rate [Apical] Pulse Rate from SpO2 Sensor 106 H Respiratory Rate 18 Respiratory Effort / Characteristics Respiratory Depth Blood Pressure Blood Pressure [Left Arm] Blood Pressure Mean Blood Pressure Mean [Left Arm] Blood Pressure Position [Left Arm] Pulse Oximetry 93 Oxygen Delivery Method Sepsis Recent Fever Within 48 Hours Sepsis New/Unexplained Change in Mental Status Sepsis Action Taken by Nursing Laboratory Data 11/17/22 16:03 11/17/22 16:03 Lab Results 11/17/22 11/17/22 11/17/22 Range/Units 16:02 16:03 16:03 WBC 10.91 H (4.8-10.8) K/ul RBC 4.41 (3.93-5.22) M/uL Hgb 14.3 (12.0-16.0) g/dl Hct 41.0 (34.1-44.9) % MCV 93.0 (80.0-100.0) fL MCH 32.4 (25.0-34.0) pg MCHC 34.9 (32.0-36.0) g/dL RDW Std Deviation 45.9 (36.4-46.3) fL RDW Coeff of Brandon 13.5 (11.5-14.5) % Plt Count 281 (130-400) K/uL MPV 11.5 (9.4-12.3) fL Immature Gran % (Auto) 0.5 % Neut % (Auto) 80.1 % Lymph % (Auto) 10.4 % O[place] % (Auto) 8.5 % Eos % (Auto) 0.1 % Baso % (Auto) 0.4 % Neut # (Auto) 8.74 H (1.4-6.5) K/uL Lymph # (Auto) 1.14 L (1.2-3.4) K/uL O[place] # (Auto) 0.93 H (0.24-0.82) K/uL Eos # (Auto) 0.01 (0-0.50) K/uL Baso # (Auto) 0.04 (0-0.2) K/uL Immature Gran # (Auto) 0.05 H (0.00-0.02) K/uL PT Cancelled INR Cancelled APTT Cancelled PTT Ratio Cancelled Sodium (136-145) mmol/L Potassium (3.5-5.1) mmol/L Chloride (98-107) mmol/L Carbon Dioxide (21-32) mmol/L Anion Gap (3-11) BUN (6-23) mg/dl Creatinine (0.6-1.2) mg/dl Est Cr Clr Drug Dosing Est GFR ( Amer) ml/min Est GFR (Non-Af Amer) ml/min BUN/Creatinine Ratio (10-20) Glucose (70-99(Fasting)) mg/dl Lactate (0.4-2.0) mmol/L Calcium (8.5-10.1) mg/dl Magnesium (1.7-2.4) mg/dl Total Bilirubin (0.2-1.0) mg/dl AST (13-39) U/L ALT (7-52) U/L Alkaline Phosphatase (34-104) U/L Troponin I High Sens (0-14) pg/ml Total Protein (6.0-8.3) gm/dl Albumin (3.4-5.0) gm/dl Globulin (2.5-4.0) gm/dl Albumin/Globulin Ratio (0.9-2) Adenovirus (PCR) (NotDetected) B. pertussis DNA (PCR) (NotDetected) B.parapertussis DNA PCR (NotDetected) C. pneumoniae DNA (PCR) (NotDetected) Coronavirus OC43 (PCR) (NotDetected) Coronavirus HKU1 (PCR) (NotDetected) Coronavirus 229E (PCR) (NotDetected) SARS-CoV-2 (PCR) NEGATIVE (Negative) Coronavirus NL63 (PCR) (NotDetected) Human Metapneumovir PCR (NotDetected) Influenza Type A (PCR) Negative (Neg) Influenza Type B (PCR) Negative (Neg) M. pneumoniae (PCR) (NotDetected) Parainfluenza 1 (PCR) (NotDetected) Parainfluenza 2 (PCR) (NotDetected) Parainfluenza 3 (PCR) (NotDetected) Parainfluenza 4 (PCR) (NotDetected) RSV (RT-PCR) Negative (Neg) RSV (PCR) (NotDetected) Entero/Rhino (PCR) (NotDetected) 01/09/23 01/09/23 01/09/23 Range/Units 16:03 17:24 17:25 WBC (4.8-10.8) K/ul RBC (3.93-5.22) M/uL Hgb (12.0-16.0) g/dl Hct (34.1-44.9) % MCV (80.0-100.0) fL MCH (25.0-34.0) pg MCHC (32.0-36.0) g/dL RDW Std Deviation (36.4-46.3) fL RDW Coeff of Brandon (11.5-14.5) % Plt Count (130-400) K/uL MPV (9.4-12.3) fL Immature Gran % (Auto) % Neut % (Auto) % Lymph % (Auto) % Oto[place] % (Auto) % Eos % (Auto) % Baso % (Auto) % Neut # (Auto) (1.4-6.5) K/uL Lymph # (Auto) (1.2-3.4) K/uL Otoe # (Auto) (0.24-0.82) K/uL Eos # (Auto) (0-0.50) K/uL Baso # (Auto) (0-0.2) K/uL Immature Gran # (Auto) (0.00-0.02) K/uL PT 10.8 INR 1.0 APTT 28.7 PTT Ratio 1.0 Sodium 132 L (136-145) mmol/L Potassium 4.2 (3.5-5.1) mmol/L Chloride 102 (98-107) mmol/L Carbon Dioxide 19 L (21-32) mmol/L Anion Gap 11 (3-11) BUN 14 (6-23) mg/dl Creatinine 0.86 (0.6-1.2) mg/dl Est Cr Clr Drug Dosing Not Reportable Est GFR ( Amer) 76.1 ml/min Est GFR (Non-Af Amer) 65.6 ml/min BUN/Creatinine Ratio 16.3 (10-20) Glucose 137 H (70-99(Fasting)) mg/dl Lactate (0.4-2.0) mmol/L Calcium 9.1 (8.5-10.1) mg/dl Magnesium 1.7 (1.7-2.4) mg/dl Total Bilirubin 0.6 (0.2-1.0) mg/dl AST 25 (13-39) U/L ALT 20 (7-52) U/L Alkaline Phosphatase 115 H (34-104) U/L Troponin I High Sens 14.8 H (0-14) pg/ml Total Protein 7.5 (6.0-8.3) gm/dl Albumin 4.2 (3.4-5.0) gm/dl Globulin 3.3 (2.5-4.0) gm/dl Albumin/Globulin Ratio 1.3 (0.9-2) Adenovirus (PCR) Not Detected (NotDetected) B. pertussis DNA (PCR) Not Detected (NotDetected) B.parapertussis DNA PCR Not Detected (NotDetected) C. pneumoniae DNA (PCR) Not Detected (NotDetected) Coronavirus OC43 (PCR) Not Detected (NotDetected) Coronavirus HKU1 (PCR) Not Detected (NotDetected) Coronavirus 229E (PCR) Not Detected (NotDetected) SARS-CoV-2 (PCR) Not Detected (Negative) Coronavirus NL63 (PCR) Not Detected (NotDetected) Human Metapneumovir PCR DETECTED A* (NotDetected) Influenza Type A (PCR) Not Detected (Neg) Influenza Type B (PCR) Not Detected (Neg) M. pneumoniae (PCR) Not Detected (NotDetected) Parainfluenza 1 (PCR) Not Detected (NotDetected) Parainfluenza 2 (PCR) Not Detected (NotDetected) Parainfluenza 3 (PCR) Not Detected (NotDetected) Parainfluenza 4 (PCR) Not Detected (NotDetected) RSV (RT-PCR) (Neg) RSV (PCR) Not Detected (NotDetected) Entero/Rhino (PCR) Not Detected (NotDetected) 11/17/22 Range/Units 17:41 WBC (4.8-10.8) K/ul RBC (3.93-5.22) M/uL Hgb (12.0-16.0) g/dl Hct (34.1-44.9) % MCV (80.0-100.0) fL MCH (25.0-34.0) pg MCHC (32.0-36.0) g/dL RDW Std Deviation (36.4-46.3) fL RDW Coeff of Brandon (11.5-14.5) % Plt Count (130-400) K/uL MPV (9.4-12.3) fL Immature Gran % (Auto) % Neut % (Auto) % Lymph % (Auto) % O[place] % (Auto) % Eos % (Auto) % Baso % (Auto) % Neut # (Auto) (1.4-6.5) K/uL Lymph # (Auto) (1.2-3.4) K/uL [place] # (Auto) (0.24-0.82) K/uL Eos # (Auto) (0-0.50) K/uL Baso # (Auto) (0-0.2) K/uL Immature Gran # (Auto) (0.00-0.02) K/uL PT INR APTT PTT Ratio Sodium (136-145) mmol/L Potassium (3.5-5.1) mmol/L Chloride (98-107) mmol/L Carbon Dioxide (21-32) mmol/L Anion Gap (3-11) BUN (6-23) mg/dl Creatinine (0.6-1.2) mg/dl Est Cr Clr Drug Dosing Est GFR ( Amer) ml/min Est GFR (Non-Af Amer) ml/min BUN/Creatinine Ratio (10-20) Glucose (70-99(Fasting)) mg/dl Lactate 0.8 (0.4-2.0) mmol/L Calcium (8.5-10.1) mg/dl Magnesium (1.7-2.4) mg/dl Total Bilirubin (0.2-1.0) mg/dl AST (13-39) U/L ALT (7-52) U/L Alkaline Phosphatase (34-104) U/L Troponin I High Sens (0-14) pg/ml Total Protein (6.0-8.3) gm/dl Albumin (3.4-5.0) gm/dl Globulin (2.5-4.0) gm/dl Albumin/Globulin Ratio (0.9-2) Adenovirus (PCR) (NotDetected) B. pertussis DNA (PCR) (NotDetected) B.parapertussis DNA PCR (NotDetected) C. pneumoniae DNA (PCR) (NotDetected) Coronavirus OC43 (PCR) (NotDetected) Coronavirus HKU1 (PCR) (NotDetected) Coronavirus 229E (PCR) (NotDetected) SARS-CoV-2 (PCR) (Negative) Coronavirus NL63 (PCR) (NotDetected) Human Metapneumovir PCR (NotDetected) Influenza Type A (PCR) (Neg) Influenza Type B (PCR) (Neg) M. pneumoniae (PCR) (NotDetected) Parainfluenza 1 (PCR) (NotDetected) Parainfluenza 2 (PCR) (NotDetected) Parainfluenza 3 (PCR) (NotDetected) Parainfluenza 4 (PCR) (NotDetected) RSV (RT-PCR) (Neg) RSV (PCR) (NotDetected) Entero/Rhino (PCR) (NotDetected) Administered Medications Benzonatate (Benzonatate 100 Mg Capsule) 100 mg PO TID ALLAN Stop: 12/17/22 21:29 Last Admin: 11/17/22 21:49 Dose: 100 mg Documented By: VERONICA Enoxaparin Sodium (Enoxaparin Inj 30 Mg/0.3 Ml Syr) 30 mg SQ HS ALLAN Stop: 12/17/22 21:29 Last Admin: 11/17/22 22:01 Dose: 30 mg Documented By: VERONICA Guaifenesin (Guaifenesin 600 Mg Tabcr) 1,200 mg PO Q12 ALLAN Stop: 12/17/22 21:29 Last Admin: 11/17/22 22:00 Dose: 1,200 mg Documented By: VERONICA Sodium Chloride (Nss 1000ml) 1,000 mls @ 50 mls/hr IV .Q20H ALLAN Stop: 11/18/22 14:59 Last Admin: 11/17/22 21:51 Dose: 50 mls/hr Documented By: VERONICA Melatonin (Melatonin 3 Mg Tab) 6 mg PO HS PRN PRN Reason: Sleep Stop: 12/17/22 18:37 Last Admin: 11/17/22 22:00 Dose: 6 mg Documented By: VERONICA Discontinued Medications Acetaminophen (Acetaminophen 500 Mg Tab) 1,000 mg PO NOW STA Stop: 11/17/22 17:09 Last Admin: 11/17/22 17:15 Dose: 1,000 mg Documented By: DHAVAL Albuterol (Albut/Ipratrop 3mg/0.5mg Neb 3 Ml Vial) 3 ml NEB NOW STA; Protocol Stop: 11/17/22 17:19 Last Admin: 11/17/22 17:36 Dose: 3 ml Documented By: DHAVAL Sodium Chloride (Nss 1000ml) 1,000 mls @ 999 mls/hr IV .Q1H1M ONE Stop: 11/17/22 18:00 Last Infusion: 11/17/22 18:10 Dose: 0 mls/hr Documented By: Admin: 11/17/22 17:06 Dose: 999 mls/hr Documented By: NROsiel Sodium Chloride (Nss 1000ml) 1,000 mls @ 999 mls/hr IV .Q1H1M ONE Stop: 11/17/22 19:03 Last Infusion: 11/17/22 20:44 Dose: 0 mls/hr Documented By: Admin: 11/17/22 18:30 Dose: 999 mls/hr Documented By: VERONICA Azithromycin 500 mg/ Dextrose 255 mls @ 127.5 mls/hr IV NOW STA Stop: 11/17/22 20:02 Last Infusion: 11/17/22 22:11 Dose: 0 mls/hr Documented By: Admin: 11/17/22 18:25 Dose: 127.5 mls/hr Documented By: VERONICA Cefepime HCl (Maxipime) 2,000 mg in 20 mls @ 5 mls/min IV NOW STA; Protocol Stop: 11/17/22 18:06 Last Admin: 11/17/22 18:25 Dose: 5 mls/min Documented By: VERONICA Imaging Data Radiologist's Impression: Chest X-Ray 11/17/22 15:48 XR chest 2V PA/lateral HISTORY: Cough. Shortness of breath. Sepsis COMPARISON: Chest 10/29/2021. FINDINGS: The lungs are clear. Cardiac silhouette is normal in size. No pleural effusions. No pneumothorax. IMPRESSION: No acute process. ACT 112: Negative or not required by law. Electronically signed by: Josh Smith M.D. 11/17/2022 4:26 PM Discharge Plan Visit Data Chief Complaint: Flu Like Symptoms Stated Complaint: REF BY DOC,SOB,PNUMONIA POSSIBLE,COUGH,FEVER ED Provider: Jamar Garcia Discharge Problem: Fever, Cough Patient Disposition: Admitted As Inpatient Discharge Instructions Interventions: ED Discharge Assessment Last Done: 11/17/22 20:52
[2022-11-17 17:13] LABS: Influenza A virus by PCR Negative (Neg); Influenza B virus by PCR Negative (Neg); RSV by PCR Negative (Neg); SARS CoV2 RNA(COVID-19) Ceph NEGATIVE (Negative)
[2022-11-17] MEDS ORDERED: ALBUT/IPRATROP 3MG/0.5MG NEB 3 ML VIAL NEB STA (17:18)
[2022-11-17 17:49] LABS: Partial Thromboplastin Time 28.7 Seconds (21.0-31.0); Prothrombin Time 10.8 Seconds (9.0-12.0)
[2022-11-17] MEDS ORDERED: AZITHROMYCIN 500 MG in DEXTROSE 5% 250 ML IV STA (18:03)
[2022-11-17] MEDS ORDERED: CEFEPIME 2,000 MG/20 ML VIAL IV STA (18:03)
[2022-11-17 18:26] LABS: Adenovirus PCR Not Detected (NotDetected); Bordetella parapertussis PCR Not Detected (NotDetected); Bordetella pertussis PCR Not Detected (NotDetected); Chlamydia pneumoniae PCR Not Detected (NotDetected); Coronavirus 229E PCR Not Detected (NotDetected); Coronavirus CoV-2 (COVID19)PCR Not Detected (NotDetected); Coronavirus HKU1 PCR Not Detected (NotDetected); Coronavirus NL63 PCR Not Detected (NotDetected); Coronavirus OC43PCR Not Detected (NotDetected); Influenza A PCR Not Detected (NotDetected); Influenza B PCR Not Detected (NotDetected); Mycoplasma pneumoniae PCR Not Detected (NotDetected); Parainfluenza Virus 1 PCR Not Detected (NotDetected); Parainfluenza Virus 2 PCR Not Detected (NotDetected); Parainfluenza Virus 3 PCR Not Detected (NotDetected); Parainfluenza Virus 4 PCR Not Detected (NotDetected); Respiratory Syncytial VirusPCR Not Detected (NotDetected); Rhinovirus/Enterovirus PCR Not Detected (NotDetected)
[2022-11-17 18:32] LABS: Human Metapneumovirus PCR DETECTED (NotDetected)
[2022-11-17] MEDS ORDERED: ACETAMINOPHEN 325 MG TAB PO PRN (18:32)
[2022-11-17] MEDS ORDERED: POLYETHYLENE (MIRALAX) 17 GM PACK PO PRN (18:32)
[2022-11-17] MEDS ORDERED: ALUMINUM/MAGNESIUM SUSP 30 ML UDC PO PRN (18:32)
[2022-11-17] MEDS ORDERED: MAGNESIUM HYDROXIDE SUSP 30 ML UDC PO PRN (18:32)
[2022-11-17] MEDS ORDERED: ONDANSETRON INJ 2 MG/ML 2 ML VIAL IV PRN (18:32)
[2022-11-17] MEDS ORDERED: XOPENEX/ATROVENT 0.63mg/0.5MG NEB COMBO NEB PRN (18:38)
--- NOTE | 2022-11-17 18:57 | History & Physical Report ---
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 Admitting CXR with no acute findings, patient reported to have fever of 102.5 F at home. Patient tachycardic with temperature of 30 8.3C at ED, hence sepsis POA. Lactate WNL. Blood culture, sputum culture, telemetry monitoring. Patient received cefepime and azithromycin in the ED, continue same. Mucinex, Tessalon Perle, DuoNebs as needed. Gentle IV hydration. Mild hyponatremia: Likely secondary to decreased appetite, monitor. Demand ischemia: Troponin mildly elevated, likely secondary to acute illness, trend, telemetry monitoring. Other chronic medical conditions: CAD, HLD, arthritis --- resume home meds as able DVT prophylaxis: Lovenox subcu DNR/DNI History of Present Illness Chief Complaint: Productive cough, fever Primary Care Provider: Julian Maxwell DO 77-year-old lady with PMH of HTN, HLD, reflux esophagitis, CKD stage IIIa, rosacea, age-related osteoporosis, osteoarthritis of spine with radiculopathy, adjustment disorder with depressed mood presented to the ED 11/17 with complaint of productive cough and fever. 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 Patient reports some headache, weakness, decreased appetite, chest pain from cough. Patient denies any palpitations/belly pain/nausea/vomiting/acute changes in her bowel or bladder habits/numbness/tingling/open wound or skin rash. Patient reports quitting smoking in 1980s, denies use of alcohol or drugs. 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 Family history positive for cardiac bypass surgery in her mother and her sister in their 60s. Medications reviewed with the patient at bedside. Plan of care discussed with the patient and her daughter at bedside. Allergies Allergy/AdvReac Type Severity Reaction Status Date / Time No Known Allergies Allergy Verified 11/17/22 17:53 Home Medications Medication Instructions Recorded Confirmed Type aspirin 81 mg chewable tablet 81 mg PO QAM 10/08/18 11/17/22 History atorvastatin 10 mg tablet 10 mg PO QAM 10/08/18 11/17/22 History benazepril 10 mg tablet 10 mg PO QAM 10/08/18 11/17/22 History calcium carbonate 600 mg-vitamin 1 tab PO QAM 10/08/18 11/17/22 History D3 5 mcg (200 unit) tablet (Calcium 600 + D(3)) citalopram 10 mg tablet 10 mg PO QAM 10/08/18 11/17/22 History clopidogrel 75 mg tablet 75 mg PO QAM 10/08/18 11/17/22 History fluticasone propionate 50 2 spray intranasal DAILY 10/08/18 11/17/22 History mcg/actuation nasal spray,suspension (Flonase Allergy Relief) multivitamin 1 tab PO QAM 10/08/18 11/17/22 History omeprazole 20 mg capsule,delayed 20 mg PO BID 10/08/18 11/17/22 History release Wheelchair (Manual) #1 ea 02/19/21 10/08/21 Rx walker #1 ea 02/19/21 10/08/21 Rx amoxicillin 500 mg tablet 2,000 mg PO ONCE PRN prophylaxis 04/22/22 11/17/22 Rx #4 tabs mirabegron 25 mg tablet,extended 25 mg PO QAM 11/17/22 11/17/22 History release 24 hr (Myrbetriq) Past Med/Surg History Medical History Arthritis CVA (cerebral vascular accident) Depression GERD (gastroesophageal reflux disease) History of basal cell carcinoma History of colon polyps History of SCC (squamous cell carcinoma) of skin Hyperlipidemia Hypertension Osteoporosis Spinal stenosis Surgical History H/O repair of left rotator cuff History of arthroscopy of right knee History of cataract surgery History of colonoscopy History of esophagogastroduodenoscopy (EGD) History of surgical removal of skin lesion History of tonsillectomy Hx of section Family History Mother Coronary heart disease Diabetes Sister Coronary heart disease Uncle Esophageal cancer Other No family history of adverse response to anesthesia Denies family history of Breast cancer Social History Smoking Status: Never smoker Cigarettes Per Day: 40 YEARS AGO; Second Hand Exposure: No; Hx Alcohol Use: No Hx Substance Use: No Preferred Language: Panamanian Communication Ability: Effective Carbider Required: No Beliefs That Will Affect Care: None marital status: / Current Living Situation: Alone current occupational status: retired 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 Physical Exam Physical Exam: GENERAL: Alert and oriented x3. NAD, on RA. HEENT: No pallor, no icterus. Pupils equal, round and reactive to light. Oral mucosa moist. NECK: No JVD, no neck masses. HEART: S1 and S2 heard. tachycardia in high 90s. No murmur, no gallop. RESPIRATORY SYSTEM: Normal AP diameter. No accessory muscle use. + wheezing, no crackles. Increased breath sounds b/b ABDOMEN: Soft, bowel sounds present, nontender, no distention. CENTRAL NERVOUS SYSTEM: No facial droop. Speech is clear. Obeys simple commands. Moves extremities. EXTREMITIES: No edema, no erythema seen. Results & Data Results & Data ([facility]) Vital Signs (Past 12 Hours) Vital Signs Temp Pulse Pulse Resp BP BP Pulse Ox 11/17/22 18:30 37.2 C 105 H 18 93 11/17/22 18:30 125/56 L 11/17/22 18:00 109 H 20 95 11/17/22 18:00 134/91 11/17/22 17:30 102 H 22 92 11/17/22 17:30 148/111 H 11/17/22 17:05 109 H 30 H 94 11/17/22 17:05 157/67 H 11/17/22 17:00 111 H 28 H 93 11/17/22 16:55 112 H 23 93 11/17/22 17:09 93 11/17/22 16:54 38.3 C H 115 H 151/81 H 93 11/17/22 15:46 36.8 C 122 H 19 127/74 93 O2 Del Method 11/17/22 18:30 11/17/22 18:30 11/17/22 18:00 11/17/22 18:00 11/17/22 17:30 11/17/22 17:30 11/17/22 17:05 11/17/22 17:05 11/17/22 17:00 11/17/22 16:55 11/17/22 17:09 Room Air 11/17/22 16:54 Room Air 11/17/22 15:46 Room Air Code Status & VTE Plan VTE Prophylaxis Plan VTE Prophylaxis will be ordered: Yes
[2022-11-17] MEDS ORDERED: SODIUM CHLORIDE 0.9% 1000ML 1,000 ML IV SCH (19:00)
[2022-11-17] MEDS: BENZONATATE 100 MG CAPSULE PO SCH (21:49)
[2022-11-17] MEDS: guaiFENesin 600 MG TABCR PO SCH (22:00)
[2022-11-17] MEDS: MELATONIN 3 MG TAB PO PRN (22:00)
[2022-11-17] MEDS: ENOXAPARIN INJ 30 MG/0.3 ML SYR SQ SCH (22:01)
[2022-11-18] MEDS: CEFEPIME 2,000 MG in SYRINGE 0 ML IV SCH ×3 (01:43→17:20)
[2022-11-18 04:20] LABS: Hematocrit (blood only) 35.3 % (34.1-44.9); Hemoglobin 12.1 g/dl (12.0-16.0); Mean Corpuscular Hgb Conc 34.3 g/dL (32.0-36.0); Mean Corpuscular Volume 93.4 fL (80.0-100.0); Mean Platelet Volume 11.1 fL (9.4-12.3); Platelet Count 207 K/uL (130-400); RDW Coefficient of Variation 13.9 % (11.5-14.5); RDW Standard Deviation 47.5 fL (36.4-46.3); Red Blood Count 3.78 M/uL (3.93-5.22); White Blood Count 10.35 K/ul (4.8-10.8)
[2022-11-18 04:43] LABS: BUN Creatinine Ratio 16.9 (10-20); Calcium 8.5 mg/dl (8.5-10.1); Creatinine Clr Calc Pharmacy 61.1 ml/min; Est GFR (African American) 79.4 ml/min; Est GFR (Non-African American) 68.5 ml/min; Magnesium 1.7 mg/dl (1.7-2.4); Phosphorus 3.6 mg/dl (2.5-4.9); Potassium 3.6 mmol/L (3.5-5.1)
[2022-11-18 07:47] LABS: Appearance Urine Clear (Clear); Bilirubin Urine Negative (Negative); Blood Urine Negative (Negative); Color Urine Yellow; Glucose Urine UA Negative (Negative); Ketones Urine Negative (Negative); Leukocyte Esterase Urine Negative (Negative); Nitrite Urine Negative (Negative); Protein Urine Negative (Negative); Specific Gravity Urine 1.015 (1.000-1.030); Urobilinogen Urine Negative (Negative)
[2022-11-18] MEDS: guaiFENesin 600 MG TABCR PO SCH ×2 (07:59→20:27)
[2022-11-18] MEDS: MULTIVITAMIN TAB PO SCH (07:59)
[2022-11-18] MEDS: BENZONATATE 100 MG CAPSULE PO SCH ×3 (08:00→20:27)
[2022-11-18] MEDS: ENALAPRIL MALEATE 10 MG TAB PO SCH (08:00)
[2022-11-18] MEDS: CLOPIDOGREL BISULFATE 75 MG TAB PO SCH (08:00)
[2022-11-18] MEDS: CITALOPRAM 20 MG TAB PO SCH (08:00)
[2022-11-18] MEDS: PANTOprazole 40 MG TAB PO SCH ×2 (08:00→20:27)
[2022-11-18] MEDS: CALCIUM 600MG + VIT D 400 IU TAB PO SCH (08:00)
[2022-11-18] MEDS: ATORVASTATIN 10 MG TAB PO SCH (08:00)
[2022-11-18] MEDS: ASPIRIN 81 MG CHEW PO SCH (08:00)
[2022-11-18] MEDS: FLUTICASONE PROPIONATE NA SPR 16 GM BTL SCH (08:01)
--- NOTE | 2022-11-18 12:23 | Hospitalist Progress Note ---
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 Admitting CXR with no acute findings, patient reported to have fever of 102.5 F at home. Patient tachycardic with temperature of 38.3C at ED, hence sepsis POA. Lactate WNL. Follow-up admitting blood culture, sputum culture --no growth so far Continue with Mucinex, Tessalon Perle, DuoNebs as needed. Patient reports some improvement in her cough and feeling of wellbeing, still feels weak, on room air, still with yellow sputum, temperature getting better. Continue to monitor and continue with cefepime and azithromycin 11/17. Mild hyponatremia: Likely secondary to decreased appetite, monitor. About the same. Demand ischemia: Troponin mildly elevated, likely secondary to acute illness, trend flat, patient with no chest pain, telemetry monitoring. Other chronic medical conditions: CAD, HLD, arthritis --- resume home meds as able DVT prophylaxis: Lovenox subcu DNR/DNI Disposition: PT/OT, CM to assist with DC planning, expect discharge in next 1 to 2 days. Admission and Anticipated Discharge Date Admission Date: November 17, 2022 Subjective Patient seen and examined at bedside as a follow-up of sepsis POA, metapneumovirus infection, bacterial superinfection. Patient was lying in bed, on room air, NAD, reports being able to sleep overnight which is better than her prior night but her sleep was fragmented due to nursing care that were needed overnight, reports feeling somewhat better and also reports cough getting little bit better, still with yellow sputum, still complains chest pain with coughing, would want me to liberalize her diet, made her regular diet, has not had bowel movement since admission. Denies other review of symptoms. Patient's daughter was at bedside who was also updated about the plan of care. Physical Exam Physical Exam: GENERAL: Alert and oriented x3. NAD, on RA. HEENT: No pallor, no icterus. Pupils equal, round and reactive to light. Oral mucosa moist. NECK: No JVD, no neck masses. HEART: S1 and S2 heard. tachycardia in high 90s. No murmur, no gallop. RESPIRATORY SYSTEM: Normal AP diameter. No accessory muscle use. no wheezing, no crackles. Increased breath sounds b/b ABDOMEN: Soft, bowel sounds present, nontender, no distention. CENTRAL NERVOUS SYSTEM: No facial droop. Speech is clear. Obeys simple commands. Moves extremities. EXTREMITIES: No edema, no erythema seen. Results & Data Results & Data ([facility]) Vital Signs (Past 12 Hours) Vital Signs Temp Pulse Pulse Pulse Resp BP Pulse Ox 11/18/22 11:53 36.8 C 83 18 124/66 92 11/18/22 07:45 80 11/18/22 07:45 11/18/22 07:58 36.6 C 81 16 109/64 93 11/18/22 02:15 37.8 C H 94 H 18 148/81 H 95 O2 Del Method 11/18/22 11:53 Room Air 11/18/22 07:45 11/18/22 07:45 Room Air 11/18/22 07:58 Room Air 11/18/22 02:15 Room Air
[2022-11-18] MEDS: AZITHROMYCIN 250 MG in DEXTROSE 5% 250 ML IV SCH (17:20)
[2022-11-18] MEDS: ENOXAPARIN INJ 30 MG/0.3 ML SYR SQ SCH (20:27)
[2022-11-18] MEDS: MELATONIN 3 MG TAB PO PRN (20:28)
[2022-11-19] MEDS: CEFEPIME 2,000 MG in SYRINGE 0 ML IV SCH ×2 (02:33→09:40)
[2022-11-19] MEDS: LEVALBUTEROL HCL 0.63 MG/3 ML NEB NEB PRN ×3 (02:46→21:18)
[2022-11-19] MEDS: IPRATROPIUM BROMIDE NEB SOLN 0.02% 2.5 ML VIAL INH PRN ×2 (02:46→15:36)
[2022-11-19 06:38] LABS: Hematocrit (blood only) 34.5 % (34.1-44.9); Hemoglobin 11.9 g/dl (12.0-16.0); Mean Corpuscular Hgb Conc 34.5 g/dL (32.0-36.0); Mean Corpuscular Volume 92.7 fL (80.0-100.0); Mean Platelet Volume 11.9 fL (9.4-12.3); Platelet Count 207 K/uL (130-400); RDW Coefficient of Variation 13.5 % (11.5-14.5); RDW Standard Deviation 46.6 fL (36.4-46.3); Red Blood Count 3.72 M/uL (3.93-5.22); White Blood Count 6.19 K/ul (4.8-10.8)
[2022-11-19 07:03] LABS: BUN Creatinine Ratio 16.1 (10-20); Calcium 8.8 mg/dl (8.5-10.1); Creatinine Clr Calc Pharmacy 58.2 ml/min; Est GFR (Non-African American) 64.7 ml/min; Magnesium 1.9 mg/dl (1.7-2.4); Potassium 3.9 mmol/L (3.5-5.1)
[2022-11-19] MEDS: ATORVASTATIN 10 MG TAB PO SCH (08:01)
[2022-11-19] MEDS: PANTOprazole 40 MG TAB PO SCH ×2 (08:01→20:57)
[2022-11-19] MEDS: CLOPIDOGREL BISULFATE 75 MG TAB PO SCH (08:01)
[2022-11-19] MEDS: CALCIUM 600MG + VIT D 400 IU TAB PO SCH (08:01)
[2022-11-19] MEDS: CITALOPRAM 20 MG TAB PO SCH (08:01)
[2022-11-19] MEDS: MULTIVITAMIN TAB PO SCH (08:01)
[2022-11-19] MEDS: BENZONATATE 100 MG CAPSULE PO SCH ×3 (08:01→20:57)
[2022-11-19] MEDS: ASPIRIN 81 MG CHEW PO SCH (08:01)
[2022-11-19] MEDS: ENALAPRIL MALEATE 10 MG TAB PO SCH (08:01)
[2022-11-19] MEDS: guaiFENesin 600 MG TABCR PO SCH ×2 (08:02→20:57)
[2022-11-19] MEDS: FLUTICASONE PROPIONATE NA SPR 16 GM BTL SCH (08:03)
[2022-11-19 10:28] LABS: A calco-baum cmplx NotReported Not Detected (NotDetected); Bact fragilis Not Reported Not Detected (NotDetected); C auris Not Reported Not Detected (NotDetected); Calbicans Not Reported Not Detected (NotDetected); Candida glabrata Not Reported Not Detected (NotDetected); Candida krusei Not Reported Not Detected (NotDetected); Cneoformans/gatti Not Reported Not Detected (NotDetected); Cparapsilosis Not Reported Not Detected (NotDetected); Ctropicalis Not Reported Not Detected (NotDetected); E cloacae compx Not Reported Not Detected (NotDetected); Efaecalis Not Reported Not Detected (NotDetected); Efaecium Not Reported Not Detected (NotDetected); Enterobacterales Not Reported Not Detected (NotDetected); Escherichia coli Not Reported Not Detected (NotDetected); H influenzae Not Reported Not Detected (NotDetected); K aerogenes Not Reported Not Detected (NotDetected); Koxytoca Not Reported Not Detected (NotDetected); Kpneumoniae grp Not Reported Not Detected (NotDetected); Lmonocyt Not Reported Not Detected (NotDetected); N meningitidis Not Reported Not Detected (NotDetected); P aeruginosa Not Reported Not Detected (NotDetected); Proteus spp Not Reported Not Detected (NotDetected); Salmonella spp Not Reported Not Detected (NotDetected); Smarcescens Not Reported Not Detected (NotDetected); Staph lugdunensis Not Reported Not Detected (NotDetected); Staph spp. Not Reported Not Detected (NotDetected); Staphaureus Not Reported Not Detected (NotDetected); Staphepi Not Reported Not Detected (NotDetected); Stenmaltophilia Not Reported Not Detected (NotDetected); Strep agal(GrpB) Not Reported Not Detected (NotDetected); Strep pneum Not Reported Not Detected (NotDetected); Strep pyog (GrpA) Not Reported Not Detected (NotDetected); Strep spp Not Reported Not Detected (NotDetected)
--- NOTE | 2022-11-19 15:57 | Hospitalist Progress Note ---
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 Admitting CXR with no acute findings, patient reported to have fever of 102.5 F at home. Patient tachycardic with temperature of 38.3C at ED, hence sepsis POA. Lactate WNL.MRSA screen negative. 11/17 blood culture 1 of 4 is positive for GPC in chains ---> 11/17 ID PCR Panel is negative ---> f/u Repeat Bl Cx 11/19. Likely contaminant. 11/18 sputum culture -- follow final result. Continue with Mucinex, Tessalon Perle, DuoNebs as needed. Patient reports some improvement in her cough and feeling of wellbeing, still feels weak, on room air, still with light yellow sputum, has been afebrile Continue to monitor and continue with cefepime 11/17 to rocephin 11/19 and azithromycin 11/17. MRSA negative Mild hyponatremia: Likely secondary to decreased appetite, monitor. resolved. Demand ischemia: Troponin mildly elevated, likely secondary to acute illness, trend flat, patient with no chest pain, telemetry monitoring. Other chronic medical conditions: CAD, HLD, arthritis --- resume home meds as able DVT prophylaxis: Lovenox subcu DNR/DNI Disposition: PT/OT, CM to assist with DC planning, expect discharge in next 1 to 2 days. Admission and Anticipated Discharge Date Admission Date: November 17, 2022 Subjective Patient seen and examined at bedside as a follow-up of sepsis POA, metapneumovirus infection, bacterial superinfection. Patient was lying in bed, on room air, NAD, reports being able to sleep overnight, reports strength coming back and cough getting better w/ light yellow sputum, has improving appetite. Denies other review of symptoms. Physical Exam Physical Exam: GENERAL: Alert and oriented x3. NAD, on RA. HEENT: No pallor, no icterus. Pupils equal, round and reactive to light. Oral mucosa moist. NECK: No JVD, no neck masses. HEART: S1 and S2 heard. tachycardia in high 90s. No murmur, no gallop. RESPIRATORY SYSTEM: Normal AP diameter. No accessory muscle use. no wheezing, no crackles. Increased breath sounds b/b ABDOMEN: Soft, bowel sounds present, nontender, no distention. CENTRAL NERVOUS SYSTEM: No facial droop. Speech is clear. Obeys simple commands. Moves extremities. EXTREMITIES: No edema, no erythema seen. Results & Data Results & Data ([facility]) Vital Signs (Past 12 Hours) Vital Signs Temp Pulse Pulse Resp BP Pulse Ox O2 Del Method 11/19/22 15:38 81 18 95 Room Air 11/19/22 15:09 71 11/19/22 11:28 36.6 C 81 18 103/59 L 98 Room Air 11/19/22 07:45 75 11/19/22 07:45 Room Air 11/19/22 07:25 36.5 C 74 16 100/54 L 94 Room Air
[2022-11-19] MEDS ORDERED: cefTRIAXone SODIUM 2,000 MG in DEXTROSE 5% 50 ML IV SCH (18:00)
[2022-11-19] MEDS: AZITHROMYCIN 250 MG in DEXTROSE 5% 250 ML IV SCH (18:10)
[2022-11-19] MEDS: ENOXAPARIN INJ 30 MG/0.3 ML SYR SQ SCH (20:57)
[2022-11-19] MEDS: MELATONIN 3 MG TAB PO PRN (21:06)
[2022-11-20] MEDS: ENALAPRIL MALEATE 10 MG TAB PO SCH (08:04)
[2022-11-20] MEDS: PANTOprazole 40 MG TAB PO SCH (08:04)
[2022-11-20] MEDS: MULTIVITAMIN TAB PO SCH (08:04)
[2022-11-20] MEDS: guaiFENesin 600 MG TABCR PO SCH (08:04)
[2022-11-20] MEDS: ATORVASTATIN 10 MG TAB PO SCH (08:05)
[2022-11-20] MEDS: CALCIUM 600MG + VIT D 400 IU TAB PO SCH (08:05)
[2022-11-20] MEDS: CLOPIDOGREL BISULFATE 75 MG TAB PO SCH (08:05)
[2022-11-20] MEDS: BENZONATATE 100 MG CAPSULE PO SCH ×2 (08:05→13:13)
[2022-11-20] MEDS: CITALOPRAM 20 MG TAB PO SCH (08:05)
[2022-11-20] MEDS: FLUTICASONE PROPIONATE NA SPR 16 GM BTL SCH (08:06)
[2022-11-20] MEDS: ASPIRIN 81 MG CHEW PO SCH (08:06)
--- NOTE | 2022-11-20 12:59 | Discharge Summary ---
Date of Service November 20, 2022 Admission HPI Per Admitting Provider 77-year-old lady with PMH of HTN, HLD, reflux esophagitis, CKD stage IIIa, rosacea, age-related osteoporosis, osteoarthritis of spine with radiculopathy, adjustment disorder with depressed mood presented to the ED 11/17 with complaint of productive cough and fever. 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 Patient reports some headache, weakness, decreased appetite, chest pain from cough. Patient denies any palpitations/belly pain/nausea/vomiting/acute changes in her bowel or bladder habits/numbness/tingling/open wound or skin rash. Patient reports quitting smoking in , denies use of alcohol or drugs. 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 Family history positive for cardiac bypass surgery in her mother and her sister in their 60s. Medications reviewed with the patient at bedside. Plan of care discussed with the patient and her daughter at bedside. Admission Exam Per Admitting Provider GENERAL: Alert and oriented x3. NAD, on RA. HEENT: No pallor, no icterus. Pupils equal, round and reactive to light. Oral mucosa moist. NECK: No JVD, no neck masses. HEART: S1 and S2 heard. tachycardia in high 90s. No murmur, no gallop. RESPIRATORY SYSTEM: Normal AP diameter. No accessory muscle use. + wheezing, no crackles. Increased breath sounds b/b ABDOMEN: Soft, bowel sounds present, nontender, no distention. CENTRAL NERVOUS SYSTEM: No facial droop. Speech is clear. Obeys simple commands. Moves extremities. EXTREMITIES: No edema, no erythema seen. Principal Diagnosis Pneumonia superimposed on metapneumovirus infection Sepsis POA Likely contaminant blood culture positive Mild hyponatremia Demand ischemia Discharge Exam GENERAL: Alert and oriented x3. NAD, on RA. HEENT: No pallor, no icterus. Pupils equal, round and reactive to light. Oral mucosa moist. NECK: No JVD, no neck masses. HEART: S1 and S2 heard. tachycardia in high 90s. No murmur, no gallop. RESPIRATORY SYSTEM: Normal AP diameter. No accessory muscle use. no wheezing, no crackles. CTA ABDOMEN: Soft, bowel sounds present, nontender, no distention. CENTRAL NERVOUS SYSTEM: No facial droop. Speech is clear. Obeys simple commands. Moves extremities. EXTREMITIES: No edema, no erythema seen. 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 Admitting CXR with no acute findings, patient reported to have fever of 102.5 F at home. Patient tachycardic with temperature of 38.3C at ED, hence sepsis POA. Lactate WNL.MRSA screen negative. 11/17 blood culture 1 of 4 is positive for GPC in chains ---> 11/17 ID PCR Panel is negative ---> f/u Repeat Bl Cx 11/19. Likely contaminant. Patient and her daughter were made aware of the finding and discussed the possibility of coming back to the hospital if it turns out to be true infection. They are advised to follow-up with the final results on those 2 blood culture results with their PCP office when they visit their PCP within a week time upon discharge. 11/18 sputum culture --moderate normal michelle. Continue with Mucinex, Tessalon Perle, DuoNebs as needed. P.o. antibiotics on discharge to complete antibiotic course. Patient reports improving cough with clearing color of the sputum. Patient reports her strength coming back. Patient would like to go home. Mild hyponatremia: Likely secondary to decreased appetite, monitor. resolved. Demand ischemia: Troponin mildly elevated, likely secondary to acute illness, trend flat, patient with no chest pain, telemetry monitoring. Other chronic medical conditions: CAD, HLD, arthritis --- resume home meds as able DNR/DNI Patient being discharged to home with following instruction at the point of discharge: Follow-up with the primary care physician within a week time and likely you will need labs CBC/CMP. You will be discharged on antibiotic to complete the course for pneumonia. Probiotics will be added. You will be discharged on albuterol to be used only when wheezing/acute shortness of breath. If you find yourself using albuterol consistently more than 2 times a week, advice is to connect with your PCP office for possible pulmonary function test to evaluate for underlying bronchial hyperreactivity. As discussed at the bedside with you and your daughter, the current blood culture positive which is 1 out of 4 bottles is likely contaminant given the fact that serology test on the same blood was negative. Repeat blood culture has been drawn on 11/19/2022. Advise to follow-up on the final results of your admitting blood culture and the blood culture from 11/19/2022 with your PCP office for final results when you visit them in your next visit within a week time. Also if the blood culture comes positive for true infection you might need to come back to the hospital in that scenario as discussed. You will receive your IV antibiotic today prior to discharge, you can continue taking your oral antibiotics from tomorrow morning. Take your medications as prescribed. Please make sure that you are able to get your medications today by calling your pharmacy before you leave the hospital so that your treatment continuity is not broken. Home Health Attestation I certify that this patient is under my care and that I, or a physicians assistant commissioner working with me, had a face to-face encounter that meets the home health [id number] encounter requirements with this patient. The encounter with the patient was in whole, or in part, for the following medical condition, which is the primary reason for home health care (list medical condition): I certify that, based on my findings, the following services are medically necessary home health services: My clinical findings support the need for the above services because: Further, I certify that my clinical findings support that this patient is homebound (i.e. absences from home require considerable and taxing effort and are for medical reasons or latter-day services or infrequently or of short duration when for other reasons) because: Certification for Home Health Services: Based on the above findings, I certify that this patient is confined to the home and needs intermittent alf care, physical therapy and/or speech therapy or continues to need occupational therapy. The patient is under my care, and I have initiated the establishment of the plan of care. This patient will be followed by a physician who will periodically review the plan of care. Total Time Total Time Spent Total Time Spent (In Minutes): 50 Discharge Plan Discharge Items Patient Disposition: Home - Self-Care Reason For Visit: PRODUCTIVE COUGH, FEVER Discharge Diagnosis: Pneumonia superimposed on metapneumovirus infection Sepsis POA Likely contaminant blood culture positive Mild hyponatremia Demand ischemia Activity: Resume your previous activity Non-emergency contact: Primary Care Provider Call non-emergency contact if: you have any medication questions, your symptoms worsen and your temperature is above 101 Follow-up/Referrals: Julian Maxwell DO [Primary Care Provider] - (Date & Time 11/28/2022 12:00 PM Provider Julian Maxwell DO Department [facility] ) Diet: Heart Healthy Addtl Attending Provider Instructions: Follow-up with the primary care physician within a week time and likely you will need labs CBC/CMP. You will be discharged on antibiotic to complete the course for pneumonia. Probiotics will be added. You will be discharged on albuterol to be used only when wheezing/acute short ness of breath. If you find yourself using albuterol consistently more than 2 times a week, advice is to connect with your PCP office for possible pulmonary function test to evaluate for underlying bronchial hyperreactivity. As discussed at the bedside with you and your daughter, the current blood culture positive which is 1 out of 4 bottles is likely contaminant given the fact that serology test on the same blood was negative. Repeat blood culture has been drawn on 11/19/2022. Advise to follow-up on the final results of your admitting blood culture and the blood culture from 11/19/2022 with your PCP office for final results when you visit them in your next visit within a week time. Also if the blood culture comes positive for true infection you might need to come back to the hospital in that scenario as discussed. You will receive your IV antibiotic today prior to discharge, you can continue taking your oral antibiotics from tomorrow morning. Take your medications as prescribed. Please make sure that you are able to get your medications today by calling your pharmacy before you leave the hospital so that your treatment continuity is not broken. Pending Studies at Discharge: Yes (Admitting and repeat blood culture final results.) Stand-Alone Forms: My [employer], Smoking Cessation Medications and DC Order Prescriptions: New albuterol sulfate 90 mcg/actuation aerosol powdr breath activated 2 inh inhalation Q6H PRN (Reason: shortness of breath or wheezing) Qty: 1 0RF benzonatate 100 mg Capsule 100 mg PO TID 5 Days Qty: 15 0RF guaifenesin [Mucinex] 600 mg Tablet Extended Release 12hr 1,200 mg PO Q12 5 Days Qty: 20 0RF cefdinir 300 mg capsule 300 mg PO BID 5 Days Qty: 10 0RF azithromycin 250 mg tablet 250 mg PO DAILY 1 Days Qty: 1 0RF Probiotic 3 billion cell capsule 3,000 mmu cells PO DAILY 5 Days Qty: 5 0RF Rx Instructions: administer with a meal Continued amoxicillin 500 mg tablet 2,000 mg PO ONCE PRN (Reason: prophylaxis) Qty: 4 2RF Rx Instructions: ONE HOUR PRIOR TO DENTAL PROCEDURE (DME) walker [facility] See Rx Instructions .MEDSUPPLY Qty: 1 0RF Rx Instructions: As directed (DME) Wheelchair (Manual) Device See Rx Instructions .MEDSUPPLY Qty: 1 0RF Rx Instructions: As directed atorvastatin 10 mg tablet 10 mg PO QAM citalopram 10 mg tablet 10 mg PO QAM clopidogrel 75 mg tablet 75 mg PO QAM benazepril 10 mg tablet 10 mg PO QAM multivitamin Tablet 1 tab PO QAM aspirin 81 mg Tablet,Chewable 81 mg PO QAM fluticasone propionate [Flonase Allergy Relief] 50 mcg/actuation [place] 2 spray INTRANASAL DAILY calcium carbonate-vitamin D3 [Calcium 600 + D(3)] 600 mg(1,500mg) -200 unit Tablet 1 tab PO QAM omeprazole 20 mg Capsule,Delayed Release(Dr/Ec) 20 mg PO BID Rx Instructions: TAKE THIS MEDICATION TWICE DAILY 30 TO 60 MINUTES BEFORE A MEAL Myrbetriq 25 mg Tablet Extended Release 24 Hr 25 mg PO QAM Discharge Orders: Discharge Order (Routine); Ordered 11/20/22 Ordered By: Whitney Cotto Admission Data Admit Date/Time: 11/17/22 18:32 Attending Provider: Whitney Cotto Admit Provider: Whitney Cotto Primary Care Provider: Julian Maxwell Other Providers: Whitney Cotto
== END 2022-11-20 14:09 | disposition home or self-care (01) | DRG 871 ==
LOC: ED 15:37 → 2E 18:32